=== PATIENT | male | born 1970 | race Caucasian/White ===

== ENCOUNTER → 2018-03-20 11:39 | Outpatient (CLI) | payer OTHER, SELFPAY ==
--- NOTE | 2018-03-20 11:44 | XR_ITS ---
XR shoulder LT min 2V HISTORY: ITS.REASON: Left shoulder pain ORDERING PHYSICIAN: AUDRA Rondon PATIENT AGE: 47 years Comparison: None FINDINGS: No fracture or dislocation. No lytic or blastic change. There is normal mineralization. There is minimal spurring along the inferior aspect of the glenohumeral joint. No subacromial stenosis. There is an old left ninth rib fracture IMPRESSION: Minimal osteoarthritic change of the glenohumeral joint
== END ==
PROVIDERS: PCP Physician Assistant; Visit Provider Physician Assistant
DX: M25.512 Pain in left shoulder (principal)
CPT/HCPCS: 73030

== ENCOUNTER → 2018-10-26 17:07 | Outpatient (CLI) | payer OTHER, SELFPAY ==
[2018-10-26 17:48] LABS: Basophils % 0.5 % (0.1-2.0); Eosinophils # 0.3 K/mm3 (0.0-0.4); Hematocrit 39.8 % (42.0-52.0); Hemoglobin 13.2 g/dL (14.1-18.0); Lymphocytes # 1.9 K/mm3 (0.7-4.5); Lymphocytes % 35.5 % (10-50); Mean Corpuscular HGB Conc 33.2 g/dL (31.8-35.4); Mean Corpuscular Hemoglobin 28.7 pg (27.0-31.2); Mean Corpuscular Volume 86.5 fl (80-94); Mean Platelet Volume 7.5 fl (7.4-10.4); Monocytes # 0.2 K/mm3 (0.1-1.0); Monocytes % 4.5 % (1.7-9.3); Neutrophils # 2.8 K/mm3 (1.8-7.8); Neutrophils % 53.6 % (37.0-80.0); Platelet Count 308 K/mm3 (142-424); Red Cell Distribution Width 13.2 % (11.5-17.5); White Blood Count 5.3 K/mm3 (4.8-10.8)
[2018-10-26 18:31] LABS: Alanine Aminotransferase 19 U/L (12-78); Albumin Level 3.5 gm/dL (3.4-5.0); Albumin/Globulin Ratio 1.1 (1.1-1.8); Alkaline Phosphatase 154 U/L (46-116); Aspartate Amino Transferase 10 U/L (15-37); Bilirubin,Total 0.4 mg/dL (0.2-1.0); Blood Urea Nitrogen 11 mg/dL (7-18); Calcium 8.5 mg/dL (8.5-10.1); Carbon Dioxide 27 mmol/L (21.0-32.0); Chloride 100 mmol/L (98-107); Chol/HDL Ratio 6.5 (1-3.5); Cholesterol 142 mg/dL (140-200); Creatinine,Serum 0.74 mg/dL (0.70-1.30); Estimated Glomerular Filt Rate 114 ml/min (>60); GFR (African American) 138 ML/MIN (>60); Globulin 3.3 gm/dl (1.3-3.2); Glucose 136 mg/dL (74-106); HDL Cholesterol 22 mg/dL (27-67); LDL Cholesterol 66 mg/dL (0-130); Sodium 136 mmol/L (136-145); T4 (Thyroxine) 10.3 ug/dl (4.7-13.3); Total Protein,Serum 6.8 gm/dL (6.4-8.2); Triglycerides 271 mg/dL (30-200); VLDL Cholesterol 54 mg/dL (0-40)
[2018-10-27 17:10] LABS: Hemoglobin A1C 6.1 % (0.0-7.0)
[2018-10-28 10:16] LABS: Folate 8.4 ng/mL (>3.0); Vitamin B12 502 pg/mL (232-1245); Vitamin D 25 Hydroxy 16.1 ng/mL (30.0-100.0)
== END ==
PROVIDERS: Visit Provider Physician Assistant
DX: I10 Essential (primary) hypertension (principal); R25.1 Tremor, unspecified
CPT/HCPCS: 80053; 80061; 82607; 82652; 82746; 83036; 84436; 84443; 85025

== ENCOUNTER → 2019-01-25 13:26 | Outpatient (CLI) | payer OTHER, SELFPAY ==
[2019-01-25 13:41] LABS: Basophils % 0.6 % (0.1-2.0); Eosinophils # 0.2 K/mm3 (0.0-0.4); Eosinophils % 3.9 % (0.1-12.0); Hematocrit 41.4 % (42.0-52.0); Hemoglobin 13.4 g/dL (14.1-18.0); Lymphocytes # 1.9 K/mm3 (0.7-4.5); Mean Corpuscular HGB Conc 32.4 g/dL (31.8-35.4); Mean Corpuscular Hemoglobin 27.5 pg (27.0-31.2); Mean Corpuscular Volume 84.7 fl (80-94); Monocytes # 0.3 K/mm3 (0.1-1.0); Monocytes % 5.8 % (1.7-9.3); Neutrophils # 3.4 K/mm3 (1.8-7.8); Neutrophils % 57.6 % (37.0-80.0); Platelet Count 232 K/mm3 (142-424); Red Blood Count 4.89 M/mm3 (4.60-6.20); Red Cell Distribution Width 13.6 % (11.5-17.5); White Blood Count 5.9 K/mm3 (4.8-10.8)
[2019-01-25 15:27] LABS: Alanine Aminotransferase 26 U/L (12-78); Albumin Level 3.5 gm/dL (3.4-5.0); Albumin/Globulin Ratio 1.1 (1.1-1.8); Alkaline Phosphatase 151 U/L (46-116); Anion Gap 13.9 mEq/L (5-15); Aspartate Amino Transferase 20 U/L (15-37); Bilirubin,Total 0.5 mg/dL (0.2-1.0); Blood Urea Nitrogen 12 mg/dL (7-18); Calcium 8.4 mg/dL (8.5-10.1); Carbon Dioxide 25 mmol/L (21.0-32.0); Chloride 104 mmol/L (98-107); Chol/HDL Ratio 6.5 (1-3.5); Cholesterol 209 mg/dL (140-200); Estimated Glomerular Filt Rate 104 ml/min (>60); GFR (African American) 125 ML/MIN (>60); Globulin 3.2 gm/dl (1.3-3.2); Glucose 111 mg/dL (74-106); HDL Cholesterol 32 mg/dL (27-67); LDL Cholesterol 120 mg/dL (0-130); Potassium 3.9 mmoL/L (3.5-5.1); Sodium 139 mmol/L (136-145); T4 (Thyroxine) 5.5 ug/dl (4.7-13.3); Thyroid Stimulating Hormone 2.32 uIU/ml (0.358-3.740); Total Protein,Serum 6.7 gm/dL (6.4-8.2); Triglycerides 287 mg/dL (30-200); VLDL Cholesterol 57 mg/dL (0-40)
[2019-01-27 20:46] LABS: Vitamin D 25 Hydroxy 30.7 ng/mL (30.0-100.0)
== END ==
PROVIDERS: Visit Provider Physician Assistant
DX: I10 Essential (primary) hypertension (principal); E55.9 Vitamin D deficiency, unspecified
CPT/HCPCS: 80053; 80061; 82652; 84436; 84443; 85025

== ENCOUNTER → 2019-08-07 13:59 | Outpatient (CLI) | payer OTHER, SELFPAY ==
[2019-08-07 20:58] LABS: Amphetamine/Metha Screen,Urine Negative ng/mL (<1000); Barbiturates Screen,Urine Negative ng/mL (<200); Benzodiazepines Screen,Urine Negative ng/mL (<200); Cannabinoid Screen,Urine Negative ng/mL (<50); Cocaine Screen,Urine Negative ng/mL (<300); Methadone Screen,Urine Negative ng/mL (<300); Opiate Screen,Urine Negative ng/mL (<300); Phencyclidine Screen,Urine Negative ng/mL (<25)
== END ==
PROVIDERS: Visit Provider Nurse Practitioner Family
DX: Z79.899 Other long term (current) drug therapy (principal)
CPT/HCPCS: 80305

== ENCOUNTER → 2020-03-05 18:22 | Outpatient (CLI) | payer OTHER, SELFPAY ==
[2020-03-05 19:10] LABS: Chloride 102 mmol/L (98-107); Potassium 4.4 mmoL/L (3.5-5.1); Sodium 137 mmol/L (136-145)
[2020-03-05 19:11] LABS: Basophils % 0.4 % (0.1-2.0); Eosinophils # 0.2 K/mm3 (0.0-0.4); Eosinophils % 2.4 % (0.1-12.0); Hematocrit 41.7 % (42.0-52.0); Hemoglobin 14.5 g/dL (14.1-18.0); Lymphocytes # 2.2 K/mm3 (0.7-4.5); Lymphocytes % 32.2 % (10-50); Mean Corpuscular HGB Conc 34.9 g/dL (31.8-35.4); Mean Corpuscular Hemoglobin 31.2 pg (27.0-31.2); Mean Corpuscular Volume 89.4 fl (80-94); Mean Platelet Volume 9.5 fl (7.4-10.4); Monocytes # 0.3 K/mm3 (0.1-1.0); Monocytes % 4.7 % (1.7-9.3); Neutrophils # 4.1 K/mm3 (1.8-7.8); Neutrophils % 60.2 % (37.0-80.0); Platelet Count 203 K/mm3 (142-424); Red Blood Count 4.67 M/mm3 (4.60-6.20); Red Cell Distribution Width 12.9 % (11.5-17.5); White Blood Count 6.7 K/mm3 (4.8-10.8)
[2020-03-05 19:13] LABS: Alanine Aminotransferase 21 U/L (12-78); Albumin Level 4.3 g/dl (3.5-5.0); Albumin/Globulin Ratio 1.7 (1.1-1.8); Alkaline Phosphatase 131 U/L (38-126); Anion Gap 14.4 mEq/L (5-15); Aspartate Amino Transferase 31 U/L (17-59); Bilirubin,Total 0.7 mg/dl (0.2-1.3); Blood Urea Nitrogen 18 mg/dl (9-20); Carbon Dioxide 25 mmol/L (22.0-30.0); Cholesterol 183 mg/dl (140-200); Estimated Glomerular Filt Rate 80 ml/min (>60); GFR (African American) 97 ML/MIN (>60); Globulin 2.6 g/dL (1.3-3.2); Glucose 93 mg/dl (74-100); Total Protein,Serum 6.9 g/dl (6.3-8.2); Triglycerides 316 mg/dl (30-150); VLDL Cholesterol 63 mg/dL (0-40)
[2020-03-05 19:14] LABS: Chol/HDL Ratio 5.5 (1-3.5); HDL Cholesterol 33 mg/dl (40-60)
[2020-03-05 19:26] LABS: Direct LDL Cholesterol 78.06 mg/dL (100-129)
[2020-03-05 19:31] LABS: T4 (Thyroxine) 7.9 ug/dl (5.53-11.0)
[2020-03-05 19:44] LABS: Thyroid Stimulating Hormone 1.63 uIU/mL (0.465-4.68)
[2020-03-12 13:28] LABS: 1,25 Dihydroxy Vitamin D 58 pg/mL (.); 1,25-Dihydroxy, Vitamin D-2 16 pg/mL (.); 1,25-Dihydroxy, Vitamin D-3 42 pg/mL (.)
== END ==
PROVIDERS: Visit Provider Physician Assistant
DX: I10 Essential (primary) hypertension (principal); R53.83 Other fatigue
CPT/HCPCS: 80053; 80061; 82652; 84436; 84443; 85025

== ENCOUNTER 2021-03-24 20:52 | Emergency (ER) | payer OTHER, SELFPAY ==
[2021-03-24 21:01] VITALS: BP 147/108; PULSE 99; RESP 17; TEMP 36.7; O2SAT 99; BMI 26.5
--- NOTE | 2021-03-24 21:07 | XR_ITS ---
PROCEDURE INFORMATION: Exam: XR Left Shoulder Exam date and time: 03/24/2021 9:07 PM Age: 50 years old Clinical indication: Pain; Patient HX: Patient states possible left shoulder dislocation, he refuses to attempt to move it all for positioning. ; Additional info: Possible dislocation TECHNIQUE: Imaging protocol: XR Left shoulder. Views: 2 or more views. COMPARISON: CR SHOULDCMLT XR shoulder LT min 2V 03/20/2018 11:48 AM FINDINGS: Bones/joints: Normal. Soft tissues: Normal. IMPRESSION: No acute findings.
--- NOTE | 2021-03-24 21:07 | XR_ITS ---
PROCEDURE INFORMATION: Exam: XR Chest Exam date and time: 03/24/2021 9:07 PM Age: 50 years old Clinical indication: Pain; Other: Possible left shoulder dislocation; Additional info: Possible dislocated shoulder TECHNIQUE: Imaging protocol: XR of the chest. Views: 2 views. COMPARISON: CR RIBUL3 [id number] 10/19/2016 7:38 PM FINDINGS: Lungs: Examination is limited by patient positioning. No visualized consolidation. Pleural spaces: Unremarkable. No pleural effusion. No pneumothorax. Heart/Mediastinum: Unremarkable. No cardiomegaly. Bones/joints: Unremarkable. IMPRESSION: Limited examination without visualized acute findings.
[2021-03-24 21:15] VITALS: BP 136/102; PULSE 83; O2SAT 96
[2021-03-24 21:30] VITALS: BP 134/93; PULSE 81; O2SAT 95
--- NOTE | 2021-03-24 21:59 | HMH.EDUPEXT ---
ED Disposition Clinical Impression: Shoulder disorder Disposition: Home, Self-Care Condition on Discharge: Good Instructions: DI for Shoulder Pain Additional Instructions: call ortho and pcp for follow up and monitor bp Referrals: Marvin Stafford MD [Primary Care Provider] - - Critical Care Critical Care Time: No Attestation: On 03/24/21, the high probability of a clinically significant, sudden or life threatening deterioration of the following system(s) required my full and direct attention, intervention and personal management. The time I documented below is in addition to time spent performing reported procedures but includes the following listed in this critical care notation. Medical Decision Making - Medical Records Medical records reviewed: Yes: I reviewed the patient's medical records. - [place] Inquiry Pt receiving controlled substance: No Vital Signs: 03/24/21 21:01 03/24/21 21:15 Temperature 98.1 F Temperature Source Oral Pulse Rate 83 Pulse Rate [Right Brachial] 99 H Respiratory Rate 17 Blood Pressure 136/102 H Blood Pressure [Right Arm] 147/108 H Blood Pressure Mean [Right Arm] 121 Blood Pressure Source [Right Arm] Automatic Cuff Blood Pressure Position [Right Arm] Sitting 02 Sat by Pulse Oximetry 99 96 Oxygen Delivery Method Room Air - Radiology Data #1 Image(s): Chest, Shoulder Image Reviewed: Yes I have reviewed radiologist's interpretation Preliminary Findings: No Fracture Seen Medical Decision Narrative: no clinical or xray dislocation Upper Extremity HPI - General Chief Complaint: Extremity Injury, Upper Stated Complaint: Displacement of l Shoulder Time Seen by Provider: 03/24/21 21:35 Mode of Arrival: Family Vehicle Source of Information: Patient, Medical Record Limitations: No Limitations Description of Symptoms (Recalled from ER Triage Doc. by RN): pt states he was messing around outside with my car and my shoulder made a 'shift', like a pop noise and hurt and I'm afraid its out of palce . denies any trauma, falls, or other issues. - History of Present Illness HPI narrative: acute pain lt shoulder after using upper ext - no fall complaint: injury to: left, shoulder Onset (ago): hour(s) Other Extremity Injury: Left: shoulder Other injuries: none Handedness: right Severity: moderate Exacerbating factors: movement of extremity Associated symptoms: denies other symptoms - Related Data Home Medications Medication Instructions Recorded Confirmed atorvastatin 10 mg tablet 20 mg PO QHS tab 10/23/19 03/24/21 buprenorphine 8 mg-naloxone 2 mg 2 tab SUBLINGUAL DAILY tab 03/05/20 03/24/21 sublingual tablet Gabapentin [Gabapentin 100mg Cap] 100 mg PO TID 03/24/21 03/24/21 Quetiapine Fumarate See Rx Instructions .ROUTE .COMPLEX 03/24/21 03/24/21 Venlafaxine HCl [Effexor XR 150mg] See Rx Instructions .ROUTE .COMPLEX 03/24/21 03/24/21 carvediloL [Carvedilol 25mg Tab] See Rx Instructions .ROUTE .COMPLEX 03/24/21 03/24/21 lisinopriL [Lisinopril] See Rx Instructions .ROUTE .COMPLEX 03/24/21 03/24/21 methylPREDNISolone See Rx Instructions PO PER PKG DIR 03/24/21 03/24/21 [Methylprednisolone] Allergies Allergy/AdvReac Type Severity Reaction Status Date / Time nicotine [From Nicoderm CQ] Allergy Mild Rash Verified 03/10/21 09:30 tuberculin, purified protein Allergy Unknown Verified 03/10/21 09:30 deriva [TUBERCULIN, PURIFIED PROTEIN DERIVA] [facility] History - Hepatitis A Screen Drug use history?: No High risk sexual behaviors?: No History of sexually transmitted infection?: No Currently employed?: No Childcare worker?: No Do you have indoor plumbing?: Yes Do you have electricity?: Yes Attestation statement:: This patient has been screened for Hepatitis A risk factors. I have reviewed the patient's past medical history: Yes 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: Reports:: Anxiety, Hyperlipidemia, Hypertension Denies:: Diabetes Alison
[2021-03-24 22:03] VITALS: BP 140/101; PULSE 87; RESP 17; TEMP 36.7; O2SAT 98
== END 2021-03-24 22:41 | disposition home or self-care (01) ==
PROVIDERS: Emergency Provider Emergency Medicine; PCP Emergency Medicine
DX: M25.512 Pain in left shoulder (principal); M25.9 Joint disorder, unspecified; X50.9XXA Other and unspecified overexertion or strenuous movements or postures, initial encounter; Y92.89 Other specified places as the place of occurrence of the external cause
CPT/HCPCS: 71046; 73030; 99283

== ENCOUNTER 2021-03-31 17:00 | Outpatient (RCR) | payer OTHER, SELFPAY ==
--- NOTE | 2021-03-23 17:39 | HMH.PTOPEV ---
PT Outpatient Evaluation Rehab PT Outpatient Evaluation Start: 03/23/21 17:26 Freq: Status: Active Protocol: Document 03/23/21 17:26 NESSASRAVANTHI (Rec: 03/23/21 17:38 NESSASRAVANTHI [id number]) Electronically Signed By Bubba Martin, PT 03/23/21 17:26 Outpatient Therapy Subjective History Subjective History This is the initial Physical Therapy evaluation for Darnell Montgomery. Pt is a 50 y/o male referred to PT for c/o LBP and LLE paresthesia. Pt rpeorts he was moving stuff around the house and he felt a pop in his low back. Pt rpeorts he did not think too much about it, but states the next day when he woke up his LLE was numb on the lateral thigh area. Pt reports this numbness has been unrelenting. Chief Complaint Pain,Paresthesia Symptom Type Ache,Burning,Numbness,Tingling Symptoms Relieved By Nothing Symptoms Aggravated By Bending/Stooping,Physical Activity Prior Functional Limitations None Current Functional Limitations Sitting,Recreation Activity, Walking,Bending/Stooping Symptom Description Constant but Variable, Intermittent Level of pain today (0-10) 0 Pain scale - at its best (0-10) 0 Pain scale - at its worst (0-10) 5 Lumbopelvic Eval Posture Thoracic Spine Posture Standing Position Neutral Lumbar Spine Posture Standing Position Neutral Assistive device Assistive Devices None / NA Accessory Movement L3 left L4 left L5 left Range of Motion Lumbar Spine ROM Reason Not Measured Within Functional Limits Altered Sensation Left LE Dermatome Level L3,L4 Comment abnormal - paresthesia Special Tests Lumbar Spine Screen Positive Hip Piriformis Test Positive Left Sciatic Nerve Tension Test Positive Left Unilateral Straight Leg Raise (Lasegue) Positive Left Test Lumbar Long [place] Distraction Test/Manual Positive Traction Outpatient Therapy Assessment Impairments Problems/Impairmments Palpation Tenderness,Impaired Range of Motion,Impaired Standing,Impaired Sitting, Impaired Lifting,Impaired Bending,Impaired Recreational
== END 2021-03-31 17:54 | disposition home or self-care (01) ==
LOC: PT 17:00
PROVIDERS: PCP Physician Assistant; Visit Provider Emergency Medicine
DX: M51.16 Intervertebral disc disorders with radiculopathy, lumbar region (principal)
CPT/HCPCS: 97163

== ENCOUNTER → 2021-07-14 09:47 | Outpatient (CLI) | payer OTHER, SELFPAY ==
[2021-07-14 10:29] LABS: Basophils % 0.4 % (0.1-2.0); Eosinophils # 0.1 K/mm3 (0.0-0.4); Eosinophils % 1.4 % (0.1-12.0); Hematocrit 42.3 % (42.0-52.0); Hemoglobin 14.5 g/dL (14.1-18.0); Lymphocytes # 1.7 K/mm3 (0.7-4.5); Lymphocytes % 21.4 % (10-50); Mean Corpuscular HGB Conc 34.4 g/dL (31.8-35.4); Mean Corpuscular Hemoglobin 31.1 pg (27.0-31.2); Mean Corpuscular Volume 90.3 fl (80-94); Mean Platelet Volume 8.3 fl (7.4-10.4); Monocytes # 0.2 K/mm3 (0.1-1.0); Monocytes % 3.1 % (1.7-9.3); Neutrophils # 5.8 K/mm3 (1.8-7.8); Neutrophils % 73.6 % (37.0-80.0); Platelet Count 256 K/mm3 (142-424); Red Blood Count 4.68 M/mm3 (4.60-6.20); Red Cell Distribution Width 12.7 % (11.5-17.5); White Blood Count 7.8 K/mm3 (4.8-10.8)
[2021-07-14 10:49] LABS: Chloride 105 mmol/L (98-107); Potassium 4.2 mmoL/L (3.5-5.1); Sodium 140 mmol/L (136-145)
[2021-07-14 10:52] LABS: Alanine Aminotransferase 11 U/L (12-78); Albumin Level 4.3 g/dl (3.5-5.0); Alkaline Phosphatase 112 U/L (38-126); Anion Gap 8.2 mEq/L (5-15); Aspartate Amino Transferase 27 U/L (17-59); Bilirubin,Indirect 0.6 mg/dL (0.0-0.9); Bilirubin,Total 0.6 mg/dl (0.2-1.3); Bilirubin,Unconjugated 0.7 mg/dL (0.0-1.1); Blood Urea Nitrogen 15 mg/dl (9-20); Calcium 8.9 mg/dl (8.4-10.2); Carbon Dioxide 31 mmol/L (22.0-30.0); Chol/HDL Ratio 5.4 (1-3.5); Cholesterol 205 mg/dl (140-200); Estimated Glomerular Filt Rate 120 ml/min (>60); GFR (African American) 145 ML/MIN (>60); Glucose 124 mg/dl (74-100); HDL Cholesterol 38 mg/dl (40-60); Total Protein,Serum 6.7 g/dl (6.3-8.2); Triglycerides 90 mg/dl (30-150); VLDL Cholesterol 18 mg/dL (0-40)
[2021-07-14 11:03] LABS: Direct LDL Cholesterol 135.86 mg/dL (100-129)
[2021-07-14 11:09] LABS: Free T4 (Free Thyroxine) 1.02 ng/dl (0.78-2.19)
[2021-07-14 11:24] LABS: Thyroid Stimulating Hormone 1.18 uIU/mL (0.465-4.68)
== END ==
PROVIDERS: Visit Provider Urology
DX: R07.9 Chest pain, unspecified (principal); I10 Essential (primary) hypertension; E78.49 Other hyperlipidemia; Z72.0 Tobacco use
CPT/HCPCS: 36415; 80048; 80061; 80076; 84439; 84443; 85025

== ENCOUNTER → 2021-07-21 07:51 | Outpatient (CLI) | payer OTHER, SELFPAY ==
--- NOTE | 2021-07-21 | CA_ITS ---
APPROVED REPORT Exam: Exercise Treadmill Technologist: Alma Andrade, Ht: 5 ft 10 in Wt: 179 lbs BSA: 1.99 m2 HR: 61 bpm BP: 127/88 mmHg Rhythm: SINUS BRIAN, SLOW R WAVE PROGRESSION 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: HTN Medications: Carvedilol,,,,, Venlafaxine,,,,, Lisinopri/HCTZ,,,,, Allergies: NICOTINE, TUBERCULIN Cardiac Risk Factors: HTN, FHX of CAD, Smoking Stress Test Details Test: Forest, Exercise stress testing was performed using a modified Forest protocol. HR Resting HR: 64 bpm Max Heart Rate (APMHR): 171 bpm Max HR Achieved: 109 bpm Target HR (85% APMHR): 145 bpm % of APMHR: 63 Recovery HR: 69 bpm BP Resting BP: 134/95 mmHg Max BP: 172/97 mmHg Recovery BP: 144.0/92.0 mmHg ECG Resting ECG: SINUS BRIAN, SLOW R WAVE PROGRESSION Clinical Exercise duration: 09:41 min Highest Stage Achieved: Exercise capacity: 10.1 METs Stress ECG Conclusion MAX HR= 109. % OF PM=64%. MAX B/P=172/97. METS 10.1. TEST STOPPED DUE TO=SOA, FATIGUE. PT EXERCISED 9:41 ON FOREST PROTOCOL. NO CHANGE IN PRETEST CHEST PRESSURE WITH EXERCISE. NORMAL ST RESPONSE TO EXERCISE. NORMAL GXT TO HR ACHIEVED (64% OF PM) BLUNTED HR RESPONSE ON BETA-RAFFY. GXT ONLY (NO IMAGING) Test Summary REST . . . . . . . Standing REST . . . . . . . Sitting REST 03:27 0.0 0.0 64 . 134/ 95 . . Stage 1 01:00 10.0 1.7 78 . . . . Stage 1 02:00 10.0 1.7 85 . . . . Stage 1 03:00 10.0 1.7 83 . 140/ 82 . . Stage 2 01:00 12.0 2.5 87 . . . . Stage 2 02:00 12.0 2.5 89 . . . . Stage 2 03:00 12.0 2.5 90 . 146/ 82 . . Stage 3 01:00 14.0 3.4 97 . . . . Stage 3 02:00 14.0 3.4 101 . . . . Stage 3 03:00 14.0 3.4 102 . 156/ 88 . . Stage 4 00:41 16.0 4.2 108 . . . Stop exercise at 09:41 RECOVERY 01:00 0.0 0.0 84 . 162/ 90 . . RECOVERY 02:00 0.0 0.0 64 . 162/ 90 . . RECOVERY 03:00 0.0 0.0 65 . 172/ 97 . . RECOVERY 04:00 0.0 0.0 68 . 172/ 97 . . RECOVERY 05:00 0.0 0.0 69 . 172/ 97 . . RECOVERY 05:37 0.0 0.0 65 . 144/ 92 . . Electronically signed by : Chalino Salmon MD 07/21/2021 19:39:56
--- NOTE | 2021-07-21 07:52 | CA_ITS ---
APPROVED REPORT EXAM: Comprehensive 2D, Doppler, and color-flow Echocardiogram Bus Girl: Katie Meneses RT(R) Ht: 5 ft 10 in Wt: 179lbs BSA: 1.99 BP: 137/90 mmHg Indications: CP, Smoker, HTN, SOB, hyperlipidemia 2D Dimensions LVOT 2.04 cm (M/F) 1.5-2.5 LVEF ([facility]) 54.00 % LV Volume 123.20 mL LA Volume 38.50 mL LA Volume Index 19.30 mL/m2 (M/F) 16-34 M-Mode Dimensions RVDd 3.31 cm (0.9-2.6) LA Diam 3.09 cm (1.9-4.0) LVDd 5.30 cm (3.5-5.7) Ao Diam 3.52 cm (2.0-3.7) LVDs 4.17 cm (3.5-5.7) IVSd 1.00 cm (0.6-1.1) PWd 0.82 cm (0.6-1.1) EF (Teich) 42.90% FS 21.30% EDV (Teich) 135.30 mL ESV (Teich) 77.30 mL LV Diastology E Decel Time 190.00 (160-240 msec) E/A Ratio 0.91 MED E' 6.60 (< 7 cm/sec) E'/MED E' Ratio 11.58 (>14) LAT E' 11.60 (<10 cm/sec) E/LAT E' Ratio 6.59 (>14) Mitral Valve MV E Max [place]. 76.00 (40-130 cm/s) MV A Velocity 84.00 (40-130 cm/s) E/A Ratio 0.91 MV Decel. Time 190.00 (160-240 ms) MV PHT 56.00 ms Left Ventricle Left atrium is mildly enlarged, left ventricle is normal size, mild concentric left ventricular hypertrophy, visually estimated ejection fraction 55% with no regional wall motion abnormality, grade 1 diastolic dysfunction seen without tissue Doppler evidence of raise left atrial pressure. Right Ventricle Right atrium and right ventricle mildly enlarged with normal contractility. Aortic Valve Aortic valve is minimally thickened and fibrosed, there is no aortic stenosis or aortic insufficiency. Mitral Valve Mitral valve grossly normal, there is trace mitral regurgitation. Tricuspid Valve Tricuspid grossly normal, there is trace tricuspid regurgitation, tricuspid regurgitation jet velocity is inadequate for calculation of the right ventricular systolic pressure. Pulmonic Valve Pulmonic valve is poorly visualized. Great Vessels Aortic root is normal size. Inferior vena cava is normal size with normal inspiratory collapse. Pericardium No significant pericardial effusion noted. Conclusion 1. Mild biatrial enlargement, normal left ventricular size, mild concentric left ventricular hypertrophy, visually estimated ejection fraction 55% with no regional wall motion abnormality, grade 1 diastolic dysfunction seen without tissue Doppler evidence of raise left atrial pressure. 2. Mildly enlarged right ventricle with normal contractility. 3. Trace mitral and tricuspid regurgitation. 4. No significant pericardial effusion noted. 5. Inferior vena cava normal size with normal inspiratory collapse. Electronically signed by : Chalino Salmon MD 07/21/2021 20:08:54
== END ==
PROVIDERS: PCP Emergency Medicine; Visit Provider Urology
DX: R07.9 Chest pain, unspecified (principal); I10 Essential (primary) hypertension; E78.5 Hyperlipidemia, unspecified; Z72.0 Tobacco use
CPT/HCPCS: 93017; 93306

== ENCOUNTER 2022-07-10 01:37 | Emergency (ER) | payer OTHER, SELFPAY ==
[2022-07-10] VITALS (9 sets, daily range): BP systolic 113–160; BP diastolic 64–100; PULSE 70–86; RESP 18–23; TEMP 36.8–37.2; O2SAT 94–100; BMI 20.3
--- NOTE | 2022-07-10 01:36 | ECG_ITS ---
APPROVED REPORT Exam: Resting ECG HR:87 bpm ECG Measurements Heart Rate 87 AXES WV 181 P 78 QRSd 113 QRS 78 QT 411 T 79 QTc 456 Conclusion SINUS RHYTHM INCOMPLETE RIGHT BUNDLE BRANCH BLOCK [90+ ms QRS DURATION, TERMINAL R IN V1/V2, 40+ ms S IN I/aVL/V4/V5/V6] BORDERLINE ECG UNCONFIRMED REPORT Electronically signed by : Bryan Haque MD 07/10/2022 21:12:23
--- NOTE | 2022-07-10 02:09 | CT_ITS ---
PROCEDURE INFORMATION: Exam: CT Head Without Contrast Exam date and time: 07/10/2022 2:34 AM Age: 51 years old Clinical indication: Other: Seizure like activity TECHNIQUE: Imaging protocol: Computed tomography of the head without contrast. Radiation optimization: All CT scans at this facility use at least one of these dose optimization techniques: automated exposure control; mA and/or kV adjustment per patient size (includes targeted exams where dose is matched to clinical indication); or iterative reconstruction. COMPARISON: No relevant prior studies available. FINDINGS: Brain: No evidence of acute intracranial hemorrhage. No acute parenchymal edema. No mass or shift. Cerebral ventricles: No ventriculomegaly. Paranasal sinuses: Visualized sinuses are unremarkable. No fluid levels. Mastoid air cells: Unremarkable as visualized. No mastoid effusion. Bones/joints: No acute fracture. Soft tissues: Unremarkable. IMPRESSION: No acute intracranial process.
[2022-07-10 02:17] LABS: Basophils % 0.3 % (0.1-2.0); Eosinophils # 0.1 K/mm3 (0.0-0.4); Eosinophils % 0.4 % (0.1-12.0); Hematocrit 45.4 % (42.0-52.0); Hemoglobin 14.9 g/dL (14.1-18.0); Lymphocytes # 1.4 K/mm3 (0.7-4.5); Lymphocytes % 9.3 % (10-50); Mean Corpuscular HGB Conc 32.9 g/dL (31.8-35.4); Mean Corpuscular Hemoglobin 29.8 pg (27.0-31.2); Mean Corpuscular Volume 90.7 fl (80-94); Mean Platelet Volume 8.5 fl (7.4-10.4); Monocytes # 0.3 K/mm3 (0.1-1.0); Monocytes % 1.8 % (1.7-9.3); Neutrophils # 13.1 K/mm3 (1.8-7.8); Neutrophils % 88.2 % (37.0-80.0); Platelet Count 240 K/mm3 (142-424); Red Blood Count 5.01 M/mm3 (4.60-6.20); White Blood Count 14.8 K/mm3 (4.8-10.8)
[2022-07-10 02:19] LABS: Chloride 102 mmol/L (98-107); Potassium 3.6 mmoL/L (3.5-5.1); Sodium 141 mmol/L (136-145)
[2022-07-10 02:21] LABS: Alanine Aminotransferase 32 U/L (12-78); Aspartate Amino Transferase 39 U/L (17-59); Blood Urea Nitrogen 9 mg/dl (9-20); Creatinine Clearance Estimated 121 mL/min (50-200); Estimated Glomerular Filt Rate 119 ml/min (>60); GFR (African American) 144 ML/MIN (>60); MANUAL DIFFERENTIAL MANUAL DIFFERENTIAL (MANUAL DIFF)
[2022-07-10 02:22] LABS: Albumin Level 4.5 g/dl (3.5-5.0); Albumin/Globulin Ratio 1.6 (1.1-1.8); Alkaline Phosphatase 177 U/L (38-126); Anion Gap 14.6 mEq/L (5-15); Bilirubin,Total 0.5 mg/dl (0.2-1.3); Calcium 9.4 mg/dl (8.4-10.2); Carbon Dioxide 28 mmol/L (22.0-30.0); Globulin 2.8 g/dL (1.3-3.2); Glucose 185 mg/dl (74-100); Total Protein,Serum 7.3 g/dl (6.3-8.2)
[2022-07-10 02:29] LABS: Coronavirus 19, PCR Not Detected (NotDetected); Influenza A, PCR Not Detected (NotDetected); Influenza B, PCR Not Detected (NotDetected)
[2022-07-10 02:29] LABS: Microscopic, Urine URINE MICROSCOPIC (MICROSCOPIC)
[2022-07-10 02:33] LABS: Appearance,Urine CLEAR (Clear); Bilirubin,Urine Negative (Negative); Blood, Urine TRACE-I (Negative); Color,Urine YELLOW (Yellow); Glucose,Urine (UA) Negative (Negative); Ketones,Urine Negative (Negative); Leukocyte Esterase,Urine Negative (Negative); Nitrate,Urine Negative (Negative); Protein,Urine TRACE (Negative); Specific Gravity, Urine 1.025 (1.005-1.030); Urobilinogen,Urine 0.2 EU/dl (0.2)
[2022-07-10 02:34] LABS: Lymphocytes % 11 % (10-50); Neutrophils % 77 % (42-76); Platelet Estimate Normal; RBC Morphology Normal; Total Cells Counted 100
--- NOTE | 2022-07-10 02:38 | HMH.EDAMS ---
Discharge Plan Disposition Patient Disposition: Home, Self-Care Chief Complaint: Altered Mental Status Prescriptions Prescriptions: No Action atorvastatin 20 mg tablet 20 mg PO DAILY Qty: 90 3RF Rx Instructions: One daily for cholesterol lisinopril 10 mg tablet See Rx Instructions .ROUTE .COMPLEX Qty: 90 5RF Dose Instruction: TAKE ONE TABLET BY MOUTH EVERY DAY Rx Instructions: TAKE ONE TABLET BY MOUTH EVERY DAY carvedilol 25 mg tablet See Rx Instructions .ROUTE .COMPLEX Qty: 60 5RF Dose Instruction: TAKE ONE TABLET BY MOUTH TWICE DAILY Rx Instructions: TAKE ONE TABLET BY MOUTH TWICE DAILY venlafaxine 150 mg capsule,extended release 24hr See Rx Instructions .ROUTE .COMPLEX Qty: 90 5RF Dose Instruction: TAKE ONE CAPSULE BY MOUTH EVERY DAY Rx Instructions: TAKE ONE CAPSULE BY MOUTH EVERY DAY Referrals Follow up/Referrals: Marvin Stafford MD [Primary Care Provider] - See instructions Clinical Impressions Clinical Impression: Acute alteration in mental status Instructions Patient Instructions: DI for Altered Mental Status Discharge ED Provider: Marvin Stafford Altered Mental Status HPI General Chief Complaint: Altered Mental Status Stated Complaint: seizures Time Seen by Provider: 07/10/22 02:38 Mode of Arrival: EMS Source of Information: Patient and EMS Limitations: No Limitations Description of Symptoms (Recalled from ER Triage Doc. by RN): Pt c/o nausea and vomiting since last night. Per EMS, reported that at 10pm tonight the patient woke up clutching his chest and vomitted and fell back into the bed and was twitching with seizure like activity followed by unresponsiveness. states that the patient had one more episode similar to this when she decided to call EMS and patient had another episode while ems was en route to patients house. EMS states that patient was very lethargic with vomiting while en route to [facility] but no seizures while en route. History of Present Illness HPI narrative: pt with nausea and vomiting with 2 episodes of sitting up and jerking and was lethargic - no fever/rash or trauma - no known sz disorder complaint: altered mental status Onset (ago): hour(s) Timing confirmed by: spouse Severity: moderate Consistency of symptoms: waxing and waning Associated symptoms: denies other symptoms Related Data Home Medications Medication Instructions Recorded Confirmed atorvastatin 20 mg tablet 20 mg PO DAILY hld 07/10/22 07/10/22 carvedilol 25 mg tablet 25 mg PO DAILY htn 07/10/22 07/10/22 lisinopril 10 mg tablet 10 mg PO DAILY htn 07/10/22 07/10/22 venlafaxine 150 mg 150 mg PO DAILY Depression 07/10/22 07/10/22 capsule,extended release 24 hr Allergies Allergy/AdvReac Type Severity Reaction Status Date / Time nicotine [From Nicoderm CQ] Allergy Mild Rash Verified 08/20/21 14:34 tuberculin, purified protein Allergy Unknown Verified 08/20/21 14:34 deriva [TUBERCULIN, PURIFIED PROTEIN DERIVA] [facility] 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 (Updated 07/10/22 @ 06:24 by Marvin Stafford MD) Anxiety RLS (restless legs syndrome) Shoulder injury Tobacco abuse Vitamin D deficiency Social History Smoking Status: Current every day smoker tobacco type: cigarettes packs per day: 1 alcohol intake: never counseling provided: none substance use type: former substance user current occupational status: employed Travel in the last 8 weeks: None household members: family housing: house ROS Obtained: Yes All systems reviewed & no additional complaints except as documented Physical Exam General General appearance: alert Head Head exam: normocephalic Eye Eye exam: Present PERRL, EOMI and other (lt sided tommy cyst ) ENT ENT exam: Present mucous membranes moist and other (no evid of tongue biting ) Neck Neck exam: Present trachea midline; Absent meningismus or lymphadenopathy Respiratory Resp
[2022-07-10 02:42] LABS: RBC,Urine Occasional #/hpf (0-3); Sperm,Urine 2+ /lpf
[2022-07-10 02:43] LABS: Benzodiazepines Screen,Urine Negative ng/ml (<200)
[2022-07-10 02:44] LABS: Amphetamine/Metha Screen,Urine Negative ng/ml (<1000)
[2022-07-10 02:45] LABS: Barbiturates Screen,Urine Negative ng/ml (<200); Cannabinoid Screen,Urine Positive ng/ml (<50)
[2022-07-10 02:46] LABS: Cocaine Screen,Urine Negative ng/ml (<300)
[2022-07-10 02:47] LABS: Methadone Screen,Urine Negative ng/ml (<300); Opiate Screen,Urine Negative ng/ml (<300)
[2022-07-10 02:48] LABS: Phencyclidine Screen,Urine Negative ng/ml (<25)
[2022-07-10 02:51] LABS: Troponin I < 0.01 ng/ml (0.00-0.034)
[2022-07-10 02:59] LABS: Amylase 108 U/L (30-110); Lipase 28 U/L (23-300)
--- NOTE | 2022-07-10 05:23 | XR_ITS ---
PROCEDURE INFORMATION: Exam: XR Chest Exam date and time: 07/10/2022 5:44 AM Age: 51 years old Clinical indication: Sternal or substernal pain; Additional info: Chest pain TECHNIQUE: Imaging protocol: Radiologic exam of the chest. Views: 2 views. COMPARISON: CR XR CHEST 2V 03/24/2021 9:27 PM FINDINGS: Lungs: No consolidation. Pleural spaces: No significant pleural effusion. No pneumothorax. Heart/Mediastinum: No cardiomegaly. Bones/joints: No displaced fracture. Soft tissues: Unremarkable. IMPRESSION: No definite acute cardiopulmonary disease.
[2022-07-10 05:32] LABS: C-Reactive Protein 6.8 mg/L (0-4)
[2022-07-10 05:40] LABS: Erythrocyte Sedimentation Rate 13 mm/hr (0-15)
== END 2022-07-10 06:27 | disposition home or self-care (01) ==
PROVIDERS: Emergency Provider Emergency Medicine; PCP Emergency Medicine
DX: R41.82 Altered mental status, unspecified (principal); R56.9 Unspecified convulsions; R11.2 Nausea with vomiting, unspecified; Z79.899 Other long term (current) drug therapy; E78.5 Hyperlipidemia, unspecified; I10 Essential (primary) hypertension; F32.A Depression, unspecified; F41.9 Anxiety disorder, unspecified; G25.81 Restless legs syndrome
CPT/HCPCS: 70450; 71046; 80053; 80305; 81001; 82150; 83690; 84484; 85007; 85025; 85651; 86140; 93005; 96374; 96375; 99285; C9803; J2405; U0003; U0005

== ENCOUNTER → 2022-09-17 15:00 | Outpatient (CLI) | payer OTHER, SELFPAY ==
[2022-09-17 18:20] LABS: Alanine Aminotransferase 20 U/L (12-78); Albumin Level 4.2 g/dl (3.5-5.0); Albumin/Globulin Ratio 1.8 (1.1-1.8); Alkaline Phosphatase 103 U/L (38-126); Anion Gap 9.8 mEq/L (5-15); Aspartate Amino Transferase 32 U/L (17-59); Bilirubin,Total 0.5 mg/dl (0.2-1.3); Blood Urea Nitrogen 14 mg/dl (9-20); Calcium 8.3 mg/dl (8.4-10.2); Carbon Dioxide 28 mmol/L (22.0-30.0); Chloride 107 mmol/L (98-107); Chol/HDL Ratio 4.5 (1-3.5); Cholesterol 167 mg/dl (140-200); Estimated Glomerular Filt Rate 119 ml/min (>60); GFR (African American) 144 ML/MIN (>60); Globulin 2.3 g/dL (1.3-3.2); Glucose 115 mg/dl (74-100); HDL Cholesterol 37 mg/dl (40-60); Potassium 3.8 mmoL/L (3.5-5.1); Sodium 141 mmol/L (136-145); Total Protein,Serum 6.5 g/dl (6.3-8.2); Triglycerides 267 mg/dl (30-150); VLDL Cholesterol 53 mg/dL (0-40)
[2022-09-17 18:22] LABS: Basophils # 0.1 K/mm3 (0-0.2); Basophils % 0.9 % (0.1-2.0); Eosinophils # 0.5 K/mm3 (0.0-0.4); Eosinophils % 6.4 % (0.1-12.0); Hematocrit 40.9 % (42.0-52.0); Hemoglobin 13.5 g/dL (14.1-18.0); Lymphocytes # 2.1 K/mm3 (0.7-4.5); Lymphocytes % 30.2 % (10-50); Mean Corpuscular HGB Conc 33.1 g/dL (31.8-35.4); Mean Corpuscular Hemoglobin 29.8 pg (27.0-31.2); Mean Corpuscular Volume 90.2 fl (80-94); Mean Platelet Volume 9.1 fl (7.4-10.4); Monocytes # 0.3 K/mm3 (0.1-1.0); Monocytes % 3.5 % (1.7-9.3); Neutrophils # 4.2 K/mm3 (1.8-7.8); Platelet Count 215 K/mm3 (142-424); Red Blood Count 4.54 M/mm3 (4.60-6.20); Red Cell Distribution Width 13.3 % (11.5-17.5); White Blood Count 7.1 K/mm3 (4.8-10.8)
[2022-09-17 18:39] LABS: 25-OH Vitamin D, Total 29.4 ng/mL (30-100)
[2022-09-17 18:51] LABS: Prostate Specific Ag Screen 0.9 ng/ml (0.0-4.0); Thyroid Stimulating Hormone 1.35 uIU/mL (0.465-4.68)
== END ==
PROVIDERS: PCP Emergency Medicine; Visit Provider Emergency Medicine
DX: Z00.00 Encounter for general adult medical examination without abnormal findings (principal); E55.9 Vitamin D deficiency, unspecified; Z79.899 Other long term (current) drug therapy
CPT/HCPCS: 80053; 80061; 82306; 84443; 85025; G0103

== ENCOUNTER 2023-01-05 19:13 | Emergency (ER) | payer OTHER, SELFPAY ==
--- NOTE | 2023-01-05 19:19 | XR_ITS ---
PROCEDURE INFORMATION: Exam: XR Right Knee Exam date and time: 01/05/2023 7:20 PM Age: 52 years old Clinical indication: Injury or trauma; Fall; Work related; Blunt trauma; Patient HX: Patient fell yesterday injuring right knee. TECHNIQUE: Imaging protocol: Radiologic exam of the right knee. Views: 3 views. COMPARISON: No relevant prior studies available. FINDINGS: Bones/joints: Normal. No fracture evident Soft tissues: Normal. IMPRESSION: No acute findings.
[2023-01-05 19:42] VITALS: BP 141/91; PULSE 86; RESP 18; TEMP 37; O2SAT 98; BMI 26.5
--- NOTE | 2023-01-05 20:05 | EXP.UTC ---
Discharge Plan Disposition Patient Disposition: Home, Self-Care Condition: Good Prescriptions Prescriptions: No Action clonazepam [Klonopin] 0.5 mg tablet 0.5 mg PO BID Qty: 60 2RF gabapentin 300 mg capsule 300 mg PO HS Qty: 30 2RF atorvastatin 20 mg tablet 20 mg PO DAILY Qty: 30 5RF Rx Instructions: One daily for cholesterol carvedilol 25 mg tablet 25 mg PO DAILY Qty: 180 3RF Rx Instructions: TAKE ONE TABLET BY MOUTH TWICE DAILY lisinopril 10 mg tablet See Rx Instructions .ROUTE .COMPLEX Qty: 90 5RF Dose Instruction: TAKE ONE TABLET BY MOUTH EVERY DAY Rx Instructions: TAKE ONE TABLET BY MOUTH EVERY DAY venlafaxine 150 mg capsule,extended release 24hr 150 mg PO DAILY Rx Instructions: TAKE ONE CAPSULE BY MOUTH EVERY DAY Referrals Follow up/Referrals: Marvin Stafford MD [Primary Care Provider] - See instructions Devon Wahl DO [Staff Physician] - See instructions Activity Restrictions/Add. Instructions Additional Instructions/Restrictions: *weight bearing as tolerated *RICE, Rest the extremity, Ice 15-20 minutes 3-4 times daily, Compress- wear the anton wrap as discussed as much as possible to help reduce swelling and pain, Elevate the extremity when at rest *Knee immobilzier is for support and help control swelling, use it except in the shower. Be sure that is not to tight but not to loose either *Elevate when resting? *Ibuprofen 600 every 6-8 hours as needed for pain an inflammation. If need something more can take Tylenol in between doses of Ibuprofen to help Immediately follow up with your family doctor for new or worsening of symptoms, or no noticeable improvement over the next 3-5 days Clinical Impressions Clinical Impression: Knee sprain Stand Alone Forms Stand Alone Forms: Work/School Release Instructions Patient Instructions: DI for Knee Sprain, How to Use Crutches, How to Use a Knee Immobilizer, Knee Sprain Discharge ED Provider: Hayde Arita [facility] General Stated complaint: AO05 RT knee inj Mode of Arrival: Wheelchair Source of Information: Patient and Spouse Limitations: No Limitations Time Seen by Provider: 01/05/23 20:05 Description of Symptoms (Recalled from Triage Doc. by RN): pt is c/o R knee pain. pt states he twisted it yesterday afternooon. HEENT Symptoms (Recalled from RN notes): No Resp Symptoms (Recalled from RN notes): No Skin Symptoms (Recalled from RN notes): No MS Symptoms (Recalled from RN notes): Yes Functional Status (Recalled from RN notes): wnl History of Present Illness Provider Complaint: Patient states that he was laying [place] yesterday and it was raining and he went to step out window and he twisted his right knee and felt a pop States that now has pain on the sides of his knee and feels like it is unsteady Related Data Home Medications Medication Instructions Recorded Confirmed venlafaxine 150 mg 150 mg PO DAILY Depression 07/10/22 12/13/22 capsule,extended release 24 hr Previous Rx's Medication Instructions Recorded atorvastatin 20 mg tablet 20 mg PO DAILY hld #30 tabs 08/26/22 carvedilol 25 mg tablet 25 mg PO DAILY htn #180 tabs 09/21/22 clonazepam 0.5 mg tablet (Klonopin) 0.5 mg PO BID #60 tabs 12/13/22 gabapentin 300 mg capsule 300 mg PO HS #30 caps 12/13/22 lisinopril 10 mg tablet See Rx Instructions .Route 12/14/22 .COMPLEX #90 tabs Allergies Allergy/AdvReac Type Severity Reaction Status Date / Time nicotine [From Nicoderm CQ] Allergy Mild Rash Verified 01/05/23 19:44 tuberculin, purified protein Allergy Unknown Verified 01/05/23 19:44 deriva [TUBERCULIN, PURIFIED PROTEIN DERIVA] Worker's Comp Is this a Worker's Comp case?: No [facility] Disclaimer: The information contained in this section may have been updated after the patient was seen, as this information can be updated by other users. 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 (Updated 01/05/23 @ 20:2
[2023-01-05 20:34] VITALS: BP 141/91; PULSE 86; RESP 18; TEMP 37
== END 2023-01-05 20:35 | disposition home or self-care (01) ==
PROVIDERS: Emergency Provider Nurse Practitioner; PCP Emergency Medicine
DX: S83.91XA Sprain of unspecified site of right knee, initial encounter (principal); F17.210 Nicotine dependence, cigarettes, uncomplicated; F41.9 Anxiety disorder, unspecified; X50.1XXA Overexertion from prolonged static or awkward postures, initial encounter
CPT/HCPCS: 73562; 99204; 99212; G0463

== ENCOUNTER → 2023-01-27 15:50 | Outpatient (CLI) | payer OTHER, SELFPAY ==
--- NOTE | 2023-01-27 16:07 | MR_ITS ---
PROCEDURE INFORMATION: Exam: MR Right Lower Extremity Joint Without Contrast, Knee Exam date and time: 01/27/2023 4:02 PM Age: 52 years old Clinical indication: Pain; Knee; Right; Additional info: Pain of right knee TECHNIQUE: Imaging protocol: Magnetic resonance imaging of the right lower extremity joint without contrast. Exam focused on the knee. COMPARISON: CR XR KNEE RT 3V 01/05/2023 7:20 PM FINDINGS: Bones/joints: Marrow edema/contusion is identified involving the medial tibial plateau. A linear focus of STIR hyperintensity is seen within the medial tibial plateau extending to the cortex, suggestive of a nondisplaced or trabecular type fracture. Cartilage loss at the medial facet of the patella with mild subchondral cystic/edematous change. A few small osseous cysts are noted within the tibial plateau posteriorly. Small patellofemoral joint effusion. Mild degenerative spurring is seen of the patella. Minimal irregularity of the cartilage in the lateral compartment the knee. Cartilage thinning/loss is seen within the medial compartment the knee. Bursae: A neck of a Booker cyst is identified. Medial meniscus: Tear of the body of the medial meniscus extending to the inferior articulating surface. Horizontal tear of the posterior horn of the medial meniscus. Lateral meniscus: A tear is visualized of the posterior root of the lateral meniscus. A small tear is identified involving the body of the lateral meniscus. Anterior cruciate ligament: No visualized tear. Posterior cruciate ligament: Mild heterogeneous signal intensity of the PCL, without definitive tear. Mild edema and small cystic collections of fluid are seen posterior to the PCL. Medial capsule and supporting structures: Edema overlies the medial collateral ligament. There is heterogeneous signal intensity of this ligament, with grade 2 injury/partial tear. Lateral capsule and supporting structures: A small amount of fluid surrounds the popliteus tendon, without visualized tear. No visualized tear of the lateral collateral ligament. Extensor mechanism of knee: Mild tendinosis of the patellar tendon and distal quadriceps tendon. Soft tissues: Soft tissue swelling is identified anteriorly and medially. Minimal edema in fluid within Hoffa's fat. Mild edema within the popliteus muscle. Muscle strain and myositis are within the differential. IMPRESSION: 1. Marrow edema/contusion is identified involving the medial tibial plateau, with a suggested nondisplaced or trabecular type fracture. 2. MCL grade 2 injury/partial tear. 3. Medial and lateral meniscal tears. 4. Soft tissue swelling is identified anteriorly and medially. 5. Mild edema within the popliteus muscle. Muscle strain and myositis are within the differential. Clinical correlation is recommended. 6. Cartilage loss at the medial facet of the patella with mild subchondral cystic/edematous change. Cartilage thinning/loss is seen within the medial compartment the knee. 7. Small patellofemoral joint effusion. 8. Additional findings described above.
== END ==
PROVIDERS: PCP Emergency Medicine; Visit Provider Neuromusculoskeletal Medicine & OMM
DX: M25.561 Pain in right knee (principal)
CPT/HCPCS: 73721

== ENCOUNTER → 2023-06-08 17:07 | Outpatient (CLI) | payer OTHER, SELFPAY ==
[2023-06-08 15:09] LABS: Barbiturates Screen,Urine Negative ng/ml (<200)
[2023-06-08 15:10] LABS: Amphetamine/Metha Screen,Urine Negative ng/ml (<1000); Cannabinoid Screen,Urine Positive ng/ml (<50)
[2023-06-08 15:11] LABS: Benzodiazepines Screen,Urine Negative ng/ml (<200); Methadone Screen,Urine Negative ng/ml (<300)
[2023-06-08 15:12] LABS: Cocaine Screen,Urine Negative ng/ml (<300)
[2023-06-08 15:13] LABS: Opiate Screen,Urine Negative ng/ml (<300); Phencyclidine Screen,Urine Negative ng/ml (<25)
== END ==
PROVIDERS: PCP Emergency Medicine; Visit Provider Emergency Medicine
DX: Z79.899 Other long term (current) drug therapy (principal)
CPT/HCPCS: 80305

== ENCOUNTER → 2023-08-03 14:31 | Outpatient (CLI) | payer OTHER, SELFPAY ==
[2023-08-03 13:23] LABS: Amphetamine/Metha Screen,Urine Negative ng/ml (<1000)
[2023-08-03 13:26] LABS: Cannabinoid Screen,Urine Negative ng/ml (<50)
[2023-08-03 13:27] LABS: Barbiturates Screen,Urine Negative ng/ml (<200); Benzodiazepines Screen,Urine Negative ng/ml (<200)
[2023-08-03 13:28] LABS: Opiate Screen,Urine Negative ng/ml (<300)
[2023-08-03 13:29] LABS: Cocaine Screen,Urine Negative ng/ml (<300); Methadone Screen,Urine Negative ng/ml (<300)
[2023-08-03 13:31] LABS: Phencyclidine Screen,Urine Negative ng/ml (<25)
== END ==
PROVIDERS: PCP Nurse Practitioner Family; Visit Provider Nurse Practitioner Family
DX: F41.9 Anxiety disorder, unspecified (principal)
CPT/HCPCS: 80305

== ENCOUNTER 2024-01-29 13:23 | Emergency (ER) | payer OTHER, SELFPAY ==
[2024-01-29 14:00] VITALS: BP 162/83; PULSE 66; RESP 18; TEMP 37; O2SAT 98; BMI 25.2
--- NOTE | 2024-01-29 14:15 | XR_ITS ---
PROCEDURE INFORMATION: Exam: XR Right Wrist Exam date and time: 01/29/2024 2:12 PM Age: 53 years old Clinical indication: Weakness; Wrist; Right TECHNIQUE: Imaging protocol: Radiologic exam of the right wrist. Views: 3 or more views. COMPARISON: No relevant prior studies available. FINDINGS: Bones/joints: Normal. Moderate degenerative changes along the distal aspect of the lunate bone along the capitolunate joint. Soft tissues: Normal. IMPRESSION: No acute findings.
--- NOTE | 2024-01-29 14:22 | EXP.UTC ---
Discharge Plan Disposition Patient Disposition: Still a Patient Prescriptions Prescriptions: No Action buprenorphine-naloxone 8-2 mg tablet, sublingual 1 tab sublingual DAILY Patient Comments: DISSOLVE ONE TABLET UNDER THE TONGUE ONCE DAILY venlafaxine 150 mg capsule,extended release 24hr See Rx Instructions .ROUTE .COMPLEX Qty: 90 5RF Dose Instruction: TAKE ONE CAPSULE BY MOUTH EVERY DAY Rx Instructions: TAKE ONE CAPSULE BY MOUTH EVERY DAY carvedilol 25 mg tablet 25 mg PO DAILY Qty: 180 3RF Rx Instructions: TAKE ONE TABLET BY MOUTH TWICE DAILY atorvastatin 20 mg tablet See Rx Instructions .ROUTE .COMPLEX Qty: 30 1RF Dose Instruction: TAKE ONE TABLET BY MOUTH EVERY DAY FOR cholesterol Rx Instructions: TAKE ONE TABLET BY MOUTH EVERY DAY FOR cholesterol lisinopril 10 mg tablet See Rx Instructions .ROUTE .COMPLEX Qty: 90 5RF Dose Instruction: TAKE ONE TABLET BY MOUTH EVERY DAY Rx Instructions: TAKE ONE TABLET BY MOUTH EVERY DAY Referrals Follow up/Referrals: King Bosch DO [Primary Care Provider] - See instructions Discharge ED Provider: Lasha ([facility] [place] HPI General Stated complaint: right hand/arm numbness, throbbing Mode of Arrival: Ambulatory Source of Information: Patient Limitations: No Limitations Time Seen by Provider: 01/29/24 14:22 Description of Symptoms (Recalled from Triage Doc. 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 NO KNOWN INJURY HEENT Symptoms (Recalled from RN notes): No Resp Symptoms (Recalled from RN notes): No Skin Symptoms (Recalled from RN notes): No MS Symptoms (Recalled from RN notes): Yes Functional Status (Recalled from RN notes): WNL History of Present Illness Provider Complaint: 53 yr old male presents for c/o right hand/arm numbness, throbbing since sat Related Data Home Medications Medication Instructions Recorded Confirmed buprenorphine 8 mg-naloxone 2 mg 1 tab sublingual DAILY 06/08/23 01/29/24 sublingual tablet Previous Rx's Medication Instructions Recorded venlafaxine 150 mg See Rx Instructions .Route 03/10/23 capsule,extended release 24 hr .COMPLEX #90 caps carvedilol 25 mg tablet 25 mg PO DAILY htn #180 tabs 09/08/23 atorvastatin 20 mg tablet See Rx Instructions .Route 12/13/23 .COMPLEX #30 tabs lisinopril 10 mg tablet See Rx Instructions .Route 01/23/24 .COMPLEX #90 tabs Allergies Allergy/AdvReac Type Severity Reaction Status Date / Time nicotine [From Nicoderm CQ] Allergy Mild Rash Verified 08/03/23 09:15 tuberculin, purified protein Allergy Unknown Verified 08/03/23 09:15 deriva [TUBERCULIN, PURIFIED PROTEIN DERIVA] Worker's Comp Is this a Worker's Comp case?: No [facility] Disclaimer: The information contained in this section may have been updated after the patient was seen, as this information can be updated by other users. 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) Smoking Status: Current every day smoker tobacco type: cigarettes packs per day: 1 alcohol intake: never counseling provided: none substance use type: former substance user current occupational status: employed Travel in the last 8 weeks: None household members: family housing: house ROS Obtained: Yes All systems reviewed & no additional complaints except as documented Constitutional Constitutional: Reports system reviewed and no additional complaints, except as documented Eyes Eyes: Reports system reviewed and no additional complaints, except as documented ENT Ears, Nose, Mouth, and Throat: Reports system reviewed and no additional complaints, except as documented Cardiovascular Cardiovascular: Reports system reviewed and no additional complaints, except as documented Respiratory Respiratory: Reports system reviewed and no additional complaints, except as documented Musculoskeletal Musculoskeletal: Reports system reviewed and no additional complaints, except as documented, Reports as per HPI, Reports limited range of motion, Reports numbness, Reports radiating pain into limb and Reports other Integumentary/Breasts Skin/Breast: Reports system reviewed and no additional complaints, except as documented Neurologic Neurologic: Reports system reviewed and no additional complaints, except as documented, Reports as per HPI, Reports numbness and Reports paresthesias Endocrine Endocrine: Reports system reviewed and no additional complaints, except as documented Hematologic/Lymphatic Henatologic/Lymphatic: Reports system reviewed and no additional complaints, except as documented Allergic/Immunologic Allergic/Immunologic: Reports system reviewed and no additional complaints, except as documented Physical Exam General General appearance: alert and in no apparent distress Eye Eye exam: Present normal appearance ENT ENT exam: Present normal exam and normal oropharynx Respiratory Respiratory exam: Present normal lung sounds bilaterally Cardiovascular Cardiovascular exam: Present regular rate and normal rhythm Expanded Upper Extremity Exam Right: Forearm/Wrist exam: Present other (wrist is floppy, no tone, decrease credit card specialist) Neurological Exam Neurological exam: Present alert and oriented X3 Medical Decision Making Medical Records Medical records reviewed: Yes I reviewed the patient's medical records. MR Comment: report to Dr Raúl Ford Inquiry Pt receiving controlled substance: No Logan was queried for this patient: No Vital Signs: 01/29/24 14:00 Temperature 98.6 F Temperature Source Oral Pulse Rate [Left Brachial] 66 Respiratory Rate 18 Blood Pressure [Left Arm] 162/83 H Blood Pressure Mean [Left Arm] 109 Blood Pressure Source [Left Arm] Automatic Cuff Blood Pressure Position [Left Arm] Sitting 02 Sat by Pulse Oximetry 98 Oxygen Delivery Method Room Air Orders (Tests/Meds): ORDERS Category Date Time Status Wrist XR right minimum 3 views [XR wrist RT min 3V] Exams 01/29/24 14:15 Ordered Stat
--- NOTE | 2024-01-29 14:57 | ED_ITS ---
Discharge Plan Disposition Patient Disposition: Still a Patient Prescriptions Prescriptions: No Action buprenorphine-naloxone 8-2 mg tablet, sublingual 1 tab sublingual DAILY Patient Comments: DISSOLVE ONE TABLET UNDER THE TONGUE ONCE DAILY venlafaxine 150 mg capsule,extended release 24hr See Rx Instructions .ROUTE .COMPLEX Qty: 90 5RF Dose Instruction: TAKE ONE CAPSULE BY MOUTH EVERY DAY Rx Instructions: TAKE ONE CAPSULE BY MOUTH EVERY DAY carvedilol 25 mg tablet 25 mg PO DAILY Qty: 180 3RF Rx Instructions: TAKE ONE TABLET BY MOUTH TWICE DAILY atorvastatin 20 mg tablet See Rx Instructions .ROUTE .COMPLEX Qty: 30 1RF Dose Instruction: TAKE ONE TABLET BY MOUTH EVERY DAY FOR cholesterol Rx Instructions: TAKE ONE TABLET BY MOUTH EVERY DAY FOR cholesterol lisinopril 10 mg tablet See Rx Instructions .ROUTE .COMPLEX Qty: 90 5RF Dose Instruction: TAKE ONE TABLET BY MOUTH EVERY DAY Rx Instructions: TAKE ONE TABLET BY MOUTH EVERY DAY Referrals Follow up/Referrals: King Bosch DO [Primary Care Provider] - See instructions Discharge ED Provider: Shayy Gannon [facility] HPI General Chief complaint: Extremity Problem,Nontraumatic Stated complaint: right hand/arm numbness, throbbing Time Seen by Provider: 01/29/24 14:22 Mode of Arrival: Ambulatory Source of Information: Patient Limitations: No Limitations Description of Symptoms (Recalled from ER Triage Doc. 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 NO KNOWN INJURY Related Data Home Medications Medication Instructions Recorded Confirmed buprenorphine 8 mg-naloxone 2 mg 1 tab sublingual DAILY 06/08/23 01/29/24 sublingual tablet Previous Rx's Medication Instructions Recorded venlafaxine 150 mg See Rx Instructions .Route 03/10/23 capsule,extended release 24 hr .COMPLEX #90 caps carvedilol 25 mg tablet 25 mg PO DAILY htn #180 tabs 09/08/23 atorvastatin 20 mg tablet See Rx Instructions .Route 12/13/23 .COMPLEX #30 tabs lisinopril 10 mg tablet See Rx Instructions .Route 01/23/24 .COMPLEX #90 tabs Allergies Allergy/AdvReac Type Severity Reaction Status Date / Time nicotine [From Nicoderm CQ] Allergy Mild Rash Verified 08/03/23 09:15 tuberculin, purified protein Allergy Unknown Verified 08/03/23 09:15 deriva [TUBERCULIN, PURIFIED PROTEIN DERIVA] [facility] Disclaimer: The information contained in this section may have been updated after the patient was seen, as this information can be updated by other users. 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) Smoking Status: Current every day smoker tobacco type: cigarettes packs per day: 1 alcohol intake: never counseling provided: none substance use type: former substance user current occupational status: employed Travel in the last 8 weeks: None household members: family housing: house ROS Obtained: Yes Systems reviewed as appropriate & no additional complaints except as documented Physical Exam General General appearance: alert and in no apparent distress Head Head exam: atraumatic and normal inspection Eye Eye exam: Present normal appearance, PERRL and EOMI ENT ENT exam: Present normal exam, normal oropharynx and mucous membranes moist Neck Neck exam: Present normal inspection, full ROM and trachea midline; Absent lymphadenopathy Chest Chest inspection: Present normal inspection and symmetric chest wall rise Respiratory Respiratory exam: Present normal lung sounds bilaterally; Absent accessory muscle use Cardiovascular Cardiovascular exam: Present regular rate, normal rhythm, normal heart sounds, +S1 and +S2 Abdominal Exam Abdominal exam: Present soft and normal bowel sounds; Absent tenderness, guarding or rebound Extremities Exam Extremities exam: Present normal inspection and full ROM Neurological Exam Neurological exam: Present alert, oriented X3 and CN II-XII intact Psychiatric Psychiatric exam: Present normal affect and normal mood Skin Skin exam: Present warm, dry and normal color Lymphatic Lymphatic Findings: no adenopathy Medical Decision Making Vital Signs: 01/29/24 14:00 01/29/24 15:00 01/29/24 15:02 Temperature 98.6 F Temperature Source Oral Pulse Rate 59 L Pulse Rate [Left Brachial] 66 57 L Respiratory Rate 18 16 Blood Pressure 186/112 H Blood Pressure [Left Arm] 162/83 H 174/119 H Blood Pressure Mean [Left Arm] 109 137 Blood Pressure Source [Left Arm] Automatic Cuff Automatic Cuff Blood Pressure Position [Left Arm] Sitting 02 Sat by Pulse Oximetry 98 100 99 Oxygen Delivery Method Room Air Room Air 01/29/24 15:03 Temperature Temperature Source Pulse Rate 59 L Pulse Rate [Left Brachial] Respiratory Rate Blood Pressure 146/95 H Blood Pressure [Left Arm] Blood Pressure Mean [Left Arm] Blood Pressure Source [Left Arm] Blood Pressure Position [Left Arm] 02 Sat by Pulse Oximetry 99 Oxygen Delivery Method Room Air Orders (Tests/Meds): ORDERS Category Date Time Status Wrist XR right minimum 3 views [XR wrist RT min 3V] Exams 01/29/24 14:15 Completed Stat Medical Decision Narrative: In summary patient is a [age, sex] who presents to the emergency department for evaluation of [complaint]. Patient is [hemodynamically stable/unstable] upon arrival, [febrile/afebrile]. [Unremarkable physical exam, nonfocal exam versus focal remarkable exam]. Differential diagnosis includes [DDx]. Initial workup will be conducted with [hematologic labs, imaging, respiratory swab, describe workup]. Initial interventions include [crystalloid bolus, medications, p.o. challenge, etc.] initial workup reviewed by me [hematologic labs are remarkable for... Imaging remarkable for... Urinalysis remarkable for]. Upon repeat evaluation [patient had acceptable resolution of symptoms, had persistent pain for which additional interventions were conducted (describe interventions), tolerated p.o., was ambulatory, etc.]. Given this [patient is appropriate for discharge at this time and will be discharged with a prescription for... The case was discussed with hospital medicine regarding management and they will admit the patient their service for continued evaluation at this time... Etc.] Places where you can increase complexity: I informally interpreted the patient's chest x-ray or CT read and is remarkable for... Documenting what the monitor technician shows with rate and rhythm Consideration of test but deferring. Ex: I considered chest x-ray on this patient however given that they have no oxygen requirement and are clear to auscultation all lung nayak will be deferred. Social determinants of health: Given that patient is undomiciled increases complexity. Given that patient has polysubstance abuse compounds all aspects of care
[2024-01-29 15:00] VITALS: BP 186/112; PULSE 59; O2SAT 100
[2024-01-29 15:02] VITALS: BP 174/119; PULSE 57; RESP 16; O2SAT 99; BMI 25.1
[2024-01-29 15:03] VITALS: BP 146/95; PULSE 59; O2SAT 99
--- NOTE | 2024-01-29 15:23 | ED_ITS ---
<Statement entered by Shayy Gannon DO - 01/29/24 17:00> I was consulted by the EVELIN, and we discussed the complexity of the problems being addressed. I approved the treatment and management plan for this patient's care in the emergency department, thus performing a substantive portion of the medical decision making. Patient gives a classic story of waking up with his arm tucked up underneath him in an unusual position causing a radial nerve palsy. No other neurologic deficits on exam. Given this, no imaging performed in the ED. Patient was given instructions for expectant management and close outpatient follow up. Shayy Gannon DO Discharge Plan Disposition Patient Disposition: Home, Self-Care Condition: Good Prescriptions Prescriptions: No Action buprenorphine-naloxone 8-2 mg tablet, sublingual 1 tab sublingual DAILY Patient Comments: DISSOLVE ONE TABLET UNDER THE TONGUE ONCE DAILY venlafaxine 150 mg capsule,extended release 24hr See Rx Instructions .ROUTE .COMPLEX Qty: 90 5RF Dose Instruction: TAKE ONE CAPSULE BY MOUTH EVERY DAY Rx Instructions: TAKE ONE CAPSULE BY MOUTH EVERY DAY carvedilol 25 mg tablet 25 mg PO DAILY Qty: 180 3RF Rx Instructions: TAKE ONE TABLET BY MOUTH TWICE DAILY atorvastatin 20 mg tablet See Rx Instructions .ROUTE .COMPLEX Qty: 30 1RF Dose Instruction: TAKE ONE TABLET BY MOUTH EVERY DAY FOR cholesterol Rx Instructions: TAKE ONE TABLET BY MOUTH EVERY DAY FOR cholesterol lisinopril 10 mg tablet See Rx Instructions .ROUTE .COMPLEX Qty: 90 5RF Dose Instruction: TAKE ONE TABLET BY MOUTH EVERY DAY Rx Instructions: TAKE ONE TABLET BY MOUTH EVERY DAY Referrals Follow up/Referrals: King Bosch DO [Primary Care Provider] - See instructions Activity Restrictions/Add. Instructions Additional Instructions/Restrictions: You may wear a wrist brace as needed. Please call and schedule follow-up with your PCP for close follow-up. You may need referral to physical therapy or neurology or both. Return to ER for any worsening signs or symptoms. Clinical Impressions Clinical Impression: Right wrist drop Stand Alone Forms Stand Alone Forms: Work/School Release Discharge ED Provider: Shayy Gannon General Adult HPI General Chief complaint: Extremity Problem,Nontraumatic Stated complaint: right hand/arm numbness, throbbing Time Seen by Provider: 01/29/24 14:22 Mode of Arrival: Ambulatory Source of Information: Patient and Spouse Limitations: No Limitations Description of Symptoms (Recalled from ER Triage Doc. by RN): pt reports upon awakening yesterday his R wrist is limp. pt reports he is having 4/10 throbbing and sore pain in his R wrist that radiates up to his shoulder. pt reports he also has pins and needles in his R wrist and thumb. pt denies injury. History of Present Illness HPI narrative: Patient presents for evaluation of wrist drop of his right dominant hand. Patient states that he awoke on Tuesday morning with the inability to extend his wrist and fingers as well as his thumb. He denies any trauma or any other symptomology other than possibly sleeping on his right arm. Today he began having paresthesias to his thumb and index finger but is still regained all movement. He denies chest pain shortness of breath fever chills hemoptysis hematochezia melena nausea vomiting diarrhea vision changes headache neck pain shoulder pain. Related Data Home Medications Medication Instructions Recorded Confirmed buprenorphine 8 mg-naloxone 2 mg 1 tab sublingual DAILY 06/08/23 01/29/24 sublingual tablet Previous Rx's Medication Instructions Recorded venlafaxine 150 mg See Rx Instructions .Route 03/10/23 capsule,extended release 24 hr .COMPLEX #90 caps carvedilol 25 mg tablet 25 mg PO DAILY htn #180 tabs 09/08/23 atorvastatin 20 mg tablet See Rx Instructions .Route 12/13/23 .COMPLEX #30 tabs lisinopril 10 mg tablet See Rx Instructions .Route 01/23/24 .COMPLEX #90 tabs Allergies Allergy/AdvReac Type Severity Reaction Status Date / Time nicotine [From [facility]] Allergy Mild Rash Verified 08/03/23 09:15 tuberculin, purified protein Allergy Unknown Verified 08/03/23 09:15 deriva [TUBERCULIN, PURIFIED PROTEIN DERIVA] [facility] Disclaimer: The information contained in this section may have been updated after the patient was seen, as this information can be updated by other users. 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) Smoking Status: Current every day smoker tobacco type: cigarettes packs per day: 1 alcohol intake: never counseling provided: none substance use type: former substance user current occupational status: employed Travel in the last 8 weeks: None household members: family housing: house ROS Obtained: Yes Systems reviewed as appropriate & no additional complaints except as documented Physical Exam General General appearance: alert and in no apparent distress Respiratory Respiratory exam: Present normal lung sounds bilaterally Cardiovascular Cardiovascular exam: Present regular rate Neurological Exam Neurological exam: Present alert and oriented X3 Medical Decision Making Medical Records Medical records reviewed: Yes I reviewed the patient's medical records. [place] Inquiry Pt receiving controlled substance: No Vital Signs: 01/29/24 14:00 01/29/24 15:00 01/29/24 15:02 Temperature 98.6 F Temperature Source Oral Pulse Rate 59 L Pulse Rate [Left Brachial] 66 57 L Respiratory Rate 18 16 Blood Pressure 186/112 H Blood Pressure [Left Arm] 162/83 H 174/119 H Blood Pressure Mean [Left Arm] 109 137 Blood Pressure Source [Left Arm] Automatic Cuff Automatic Cuff Blood Pressure Position [Left Arm] Sitting 02 Sat by Pulse Oximetry 98 100 99 Oxygen Delivery Method Room Air Room Air 01/29/24 15:03 01/29/24 15:38 Temperature 98.6 F Temperature Source Pulse Rate 59 L 59 L Pulse Rate [Left Brachial] Respiratory Rate 16 Blood Pressure 146/95 H 146/95 H Blood Pressure [Left Arm] Blood Pressure Mean [Left Arm] Blood Pressure Source [Left Arm] Blood Pressure Position [Left Arm] 02 Sat by Pulse Oximetry 99 Oxygen Delivery Method Room Air Orders (Tests/Meds): ORDERS Category Date Time Status Wrist XR right minimum 3 views [XR wrist RT min 3V] Exams 01/29/24 14:15 Completed Stat Medical Decision Narrative: In summary patient is a 53-year-old [facility]. Patient is hemodynamically stable upon arrival, afebrile. Zickel exam is remarkable for radial nerve palsy that starts in the extensor compartment culminating in right wrist drop. Patient is tender to palpation at the lateral epicondyles but no obvious trauma. Patient is vascularly intact distally. Patient has intact sharp dull discrimination and 2 point discrimination.. Differential diagnosis includes radial nerve palsy, lacunar stroke, brachial plexus injury etc. Initial workup will be conducted with plain film x-rays which were read by radiology while the patient was in the urgent treatment center as negative for any bony abnormality. Given patient reports an acute onset and is limited to peripheral deficit MRI or further workup was considered but deemed not likely to be of benefit currently. Patient's Glascow coma score is 15 and he has no focal neurologic deficits other than the radial nerve. I had interactive discussion with the patient and his regarding his condition and explained that it may take days to weeks to resolve. We have referred him back to his PCP for close follow-up and possible PT referral and/or possible neurology referral for nerve conduction studies if necessary. Patient return to the emergency department if his symptoms worsen or change as needed. Patient verbalized understanding and agreement Critical Care Critical Care Time Critical Care Time: No
[2024-01-29 15:38] VITALS: BP 146/95; PULSE 59; RESP 16; TEMP 37
== END 2024-01-29 15:48 | disposition home or self-care (01) ==
LOC: UTC 14:56 → ER 14:56
PROVIDERS: Emergency Provider Emergency Medicine; PCP Internal Medicine
DX: M21.331 Wrist drop, right wrist (principal); M25.531 Pain in right wrist; R20.2 Paresthesia of skin; F17.210 Nicotine dependence, cigarettes, uncomplicated
CPT/HCPCS: 73110; 99283

== ENCOUNTER 2024-03-15 13:05 | Outpatient (CLI) | payer OTHER, SELFPAY ==
--- NOTE | 2024-03-15 13:08 | MR_ITS ---
FINAL REPORT TECHNIQUE: Multiplanar MR, without and with gadolinium enhancement CLINICAL HISTORY: injury/irritation right brachial plexius. 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 No obvious cervical canal stenosis is present. There is no mass, edema or abnormal signal change along the course of the brachial plexus. Thoracic outlet regions are unremarkable without obvious narrowing/compression. No adenopathy is present. IMPRESSION: Unremarkable noncontrast MR evaluation of brachial plexus Authenticated and ERN
== END 2024-03-15 23:59 | disposition home or self-care (01) ==
LOC: RAD 13:05
PROVIDERS: PCP Internal Medicine; Visit Provider Physician Assistant
DX: M21.331 Wrist drop, right wrist (principal)
CPT/HCPCS: 73218

== ENCOUNTER 2024-08-03 13:49 | Emergency (ER) | payer OTHER, SELFPAY ==
[2024-08-03 14:21] VITALS: BP 133/94; PULSE 65; RESP 20; TEMP 36.7; O2SAT 96; BMI 28.3
[2024-08-03 14:29] LABS: UTC Strep Screen (Rapid) Negative (Negative)
--- NOTE | 2024-08-03 14:29 | ED_ITS ---
Discharge Plan Disposition Patient Disposition: Home, Self-Care Condition: Good Prescriptions Prescriptions: New benzonatate 100 mg capsule 100 mg PO TIDP PRN (Reason: Cough) Qty: 30 0RF methylprednisolone 4 mg Tablets,Dose Pack 4 mg PO DIRECTED 6 Days Qty: 21 0RF Rx Instructions: Take 1 pack as directed for 6 days amoxicillin-pot clavulanate 875-125 mg Tablet 1 tab PO Q12H Qty: 20 0RF No Action buprenorphine-naloxone 8-2 mg tablet, sublingual 1 tab sublingual DAILY Patient Comments: DISSOLVE ONE TABLET UNDER THE TONGUE ONCE DAILY carvedilol 25 mg tablet 25 mg PO DAILY Qty: 180 3RF Rx Instructions: TAKE ONE TABLET BY MOUTH TWICE DAILY lisinopril 10 mg tablet See Rx Instructions .ROUTE .COMPLEX Qty: 90 5RF Dose Instruction: TAKE ONE TABLET BY MOUTH EVERY DAY Rx Instructions: TAKE ONE TABLET BY MOUTH EVERY DAY venlafaxine 150 mg capsule,extended release 24hr See Rx Instructions .ROUTE .COMPLEX Qty: 90 5RF Dose Instruction: TAKE ONE CAPSULE BY MOUTH EVERY DAY Rx Instructions: TAKE ONE CAPSULE BY MOUTH EVERY DAY atorvastatin 20 mg tablet See Rx Instructions .ROUTE .COMPLEX Qty: 90 1RF Dose Instruction: TAKE ONE TABLET BY MOUTH EVERY DAY FOR cholesterol Rx Instructions: TAKE ONE TABLET BY MOUTH EVERY DAY FOR cholesterol Referrals Follow up/Referrals: King Bosch DO [Primary Care Provider] - See instructions Activity Restrictions/Add. Instructions Additional Instructions/Restrictions: Drink plenty of fluids. Take tylenol or ibuprofen for pain or fever. Take the medications as directed. Follow up with your regular doctor. GO TO THE ER FOR ANY WORSENING SYMPTOMS Clinical Impressions Clinical Impression: Otitis media, Pharyngitis Stand Alone Forms Stand Alone Forms: Work/School Release Instructions Patient Instructions: Middle Ear Infection, DI for Pharyngitis/Tonsillopharyngitis -- Adult Print Language Print Language: Turkish Discharge ED Provider: Thee Crook [facility] General Stated complaint: sore throat Mode of Arrival: Ambulatory Source of Information: Patient Time Seen by Provider: 08/03/24 14:29 Description of Symptoms (Recalled from Triage Doc. by RN): SORE THROAT HEENT Symptoms (Recalled from RN notes): Yes Resp Symptoms (Recalled from RN notes): No Skin Symptoms (Recalled from RN notes): No MS Symptoms (Recalled from RN notes): No Functional Status (Recalled from RN notes): WNL Related Data Home Medications ?Medication ?Instructions ?Recorded ?Confirmed buprenorphine 8 mg-naloxone 2 mg 1 tab sublingual DAILY 06/08/23 02/07/24 sublingual tablet Previous Rx's ?Medication ?Instructions ?Recorded carvedilol 25 mg tablet 25 mg PO DAILY htn #180 tabs 09/08/23 lisinopril 10 mg tablet See Rx Instructions .Route 01/23/24 .COMPLEX #90 tabs venlafaxine 150 mg See Rx Instructions .Route 04/17/24 capsule,extended release 24 hr .COMPLEX #90 caps atorvastatin 20 mg tablet See Rx Instructions .Route 06/11/24 .COMPLEX #90 tabs amoxicillin 875 mg-potassium 1 tab PO Q12H #20 tabs 08/03/24 clavulanate 125 mg tablet benzonatate 100 mg capsule 100 mg PO TIDP PRN Cough #30 caps 08/03/24 methylprednisolone 4 mg tablets in 4 mg PO DIRECTED 6 days #21 tabs 08/03/24 a dose pack Allergies Allergy/AdvReac Type Severity Reaction Status Date / Time nicotine (From [facility]) Allergy Mild Rash Verified 02/07/24 15:39 tuberculin, purified protein Allergy Unknown Verified 02/07/24 15:39 deriva (TUBERCULIN, PURIFIED PROTEIN DERIVA) Worker's Comp Is this a Worker's Comp case?: No [facility] Disclaimer: The information contained in this section may have been updated after the patient was seen, as this information can be updated by other users. 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) Smoking Status: Current every day smoker tobacco type: cigarettes packs per day: 1 alcohol intake: never counseling provided: none substance use type: former substance user current occupational status: employed Travel in the last 8 weeks: None household members: family housing: house Have you lived/traveled outside [place] in past 30 days?: No Contact w/someone who lives/traveled outside [place] past 30 days?: No Exposure to someone with infectious disease in past 14 days?: No Do you have a fever (greater than 100.4 F or 38 C)?: No Have you tested positive for COVID-19: No Exposed to someone with COVID-19 in past 14 days?: No Do you have a sore throat?: Yes Do you have a cough?: No Do you have any weakness?: No Do you have any diarrhea?: No Are you experiencing any unusual bleeding?: No Do you have any muscle aches/pain?: No Do you have any abdominal pain?: No Are you experiencing loss of taste or smell?: No ROS Obtained: Yes All systems reviewed & no additional complaints except as documented Constitutional Constitutional: Denies chills, Reports fever(s) and Reports poor appetite Eyes Eyes: Denies eye discharge ENT Ears, Nose, Mouth, and Throat: Denies ear discharge, Reports otalgia, Denies hearing loss, Denies sinus pain and Reports sore throat Cardiovascular Cardiovascular: Denies chest pain and Denies dyspnea Respiratory Respiratory: Denies chest congestion, Reports cough and Denies dyspnea Gastrointestinal Gastrointestingal: Denies abdominal pain, diarrhea, nausea or vomiting Musculoskeletal Musculoskeletal: Denies arthralgias Integumentary/Breasts Skin/Breast: Denies rash Physical Exam General General appearance: alert and in no apparent distress Head Head exam: atraumatic, normocephalic and normal inspection Eye Eye exam: Present normal appearance; Absent PERRL or EOMI ENT ENT exam: Present mucous membranes moist and normal external ear exam Expanded ENT Exam TM/Canal exam: Bilateral TM: erythema, bulging and effusion Nose exam: Absent sinus tenderness Nasal speculum exam: Bilateral: normal Mouth exam: Present normal external inspection and other; Absent drooling Teeth exam: Present normal inspection Throat exam: Present tonsillar erythema and tonsillomegaly Neck Neck exam: Present normal inspection, full ROM and trachea midline; Absent tenderness, meningismus or lymphadenopathy Chest Chest inspection: Present normal inspection and symmetric chest wall rise; Absent tenderness Respiratory Respiratory exam: Present normal lung sounds bilaterally; Absent respiratory distress, wheezes or stridor Cardiovascular Cardiovascular exam: Present regular rate, normal rhythm and normal heart sounds; Absent tachycardia or irregular rhythm Abdominal Exam Abdominal exam: Present soft and normal bowel sounds; Absent distention, tenderness, guarding, rebound or rigidity Extremities Exam Extremities exam: Present normal inspection and normal capillary refill; Absent tenderness, joint swelling or calf tenderness Back Exam Back exam: Present normal inspection and full ROM; Absent tenderness, CVA tenderness (R) or CVA tenderness (L) Neurological Exam Neurological exam: Present alert, oriented X3, CN II-XII intact, normal gait and reflexes normal; Absent motor sensory deficit Psychiatric Psychiatric exam: Present normal affect and normal mood Skin Skin exam: Present warm, dry, intact and normal color Lymphatic Lymphatic Findings: no adenopathy Medical Decision Making Medical Records Medical records reviewed: No I reviewed the patient's medical records. Screening: Per USPSTF and CDC recommendations, given the prevalence of disease in our region, it is our hospital?s policy to screen for HIV and viral Hepatitis for all patients aged 18 and over and those with ongoing risk factors. [place] Inquiry Pt receiving controlled substance: No Vital Signs: 08/03/24 14:21 Temperature 98.1 F Temperature Source Oral Pulse Rate [Left Radial] 65 Respiratory Rate 20 Blood Pressure [Left Arm] 133/94 H Blood Pressure Mean [Left Arm] 107 02 Sat by Pulse Oximetry 96 Lab Data Lab results reviewed: Yes I reviewed the patient's lab results.
[2024-08-03 16:19] VITALS: BP 133/94; PULSE 65; RESP 20; TEMP 36.7
== END 2024-08-03 16:20 | disposition home or self-care (01) ==
PROVIDERS: Emergency Provider Nurse Practitioner Family; PCP Internal Medicine
DX: H66.93 Otitis media, unspecified, bilateral (principal); J02.9 Acute pharyngitis, unspecified
CPT/HCPCS: 87880; 99213; G0381

== ENCOUNTER 2024-10-28 17:41 | Emergency (ER) | payer OTHER, SELFPAY ==
[2024-10-28 17:48] VITALS: BP 176/118; PULSE 113; RESP 18; TEMP 36.6; O2SAT 98; BMI 28.7
[2024-10-28 18:08] LABS: Microscopic, Urine URINE MICROSCOPIC (MICROSCOPIC)
[2024-10-28 18:12] LABS: Coronavirus 19, PCR Not Detected (NotDetected); Influenza A, PCR Not Detected (NotDetected); Influenza B, PCR Not Detected (NotDetected)
[2024-10-28 18:21] LABS: Appearance,Urine Clear (Clear); Color,Urine Yellow (Yellow); Glucose,Urine (UA) Negative (Negative); Hemoglobin 15.9 g/dL (14.1-18.0); Mean Corpuscular Volume 88.2 fl (80-94); PH,Urine 6.5 (5.0-8.5); Protein,Urine Negative (Negative); Red Blood Count 5.33 M/mm3 (4.60-6.20); White Blood Count 9.5 K/mm3 (4.8-10.8)
[2024-10-28 18:22] LABS: Basophils % 0.3 % (0.1-2.0); Bilirubin,Urine Negative (Negative); Blood, Urine Negative (Negative); Eosinophils # 0.1 K/mm3 (0.0-0.4); Eosinophils % 0.6 % (0.1-12.0); Ketones,Urine Negative (Negative); Leukocyte Esterase,Urine Negative (Negative); Lymphocytes # 2.2 K/mm3 (0.7-4.5); Lymphocytes % 22.7 % (10-50); Mean Corpuscular HGB Conc 33.8 g/dL (31.8-35.4); Mean Corpuscular Hemoglobin 29.8 pg (27.0-31.2); Mean Platelet Volume 9.9 fl (7.4-10.4); Monocytes # 0.4 K/mm3 (0.1-1.0); Monocytes % 4.1 % (1.7-9.3); Neutrophils # 6.8 K/mm3 (1.8-7.8); Nitrate,Urine Negative (Negative); Platelet Count 249 K/mm3 (142-424); Red Cell Distribution Width 12.2 % (11.5-17.5); Urobilinogen,Urine 0.2 EU/dl (0.2)
[2024-10-28 18:33] LABS: Activated Partial Thrombo Time 28.4 seconds (22.8-30.6)
[2024-10-28 18:36] LABS: Chloride 99 mmol/L (98-107); Potassium 3.4 mmoL/L (3.5-5.1); Sodium 138 mmol/L (136-145)
[2024-10-28 18:39] LABS: Alanine Aminotransferase 29 U/L (12-78); Albumin/Globulin Ratio 1.5 (1.1-1.8); Alkaline Phosphatase 173 U/L (38-126); Anion Gap 16.4 mEq/L (5-15); Aspartate Amino Transferase 31 U/L (17-59); Blood Urea Nitrogen 14 mg/dl (9-20); Carbon Dioxide 26 mmol/L (22.0-30.0); Creatinine Clearance Estimated 139 mL/min (50-200); Estimated Glomerular Filt Rate 102 ml/min (>60); GFR (African American) 123 ML/MIN (>60); Globulin 3.3 g/dL (1.3-3.2); Total Protein,Serum 8.3 g/dl (6.3-8.2)
[2024-10-28 18:40] LABS: Bacteria,Urine Trace /lpf; Calcium 9.1 mg/dl (8.4-10.2); Glucose 153 mg/dl (74-100); WBC,Urine Occasional #/hpf (0-3)
[2024-10-28 19:41] VITALS: BP 146/98; PULSE 95; RESP 17; TEMP 36.9; O2SAT 99; BMI 28.7
[2024-10-28 20:33] VITALS: BP 146/98; PULSE 84; RESP 17; TEMP 36.9; O2SAT 99
--- NOTE | 2024-10-28 23:45 | ED_ITS ---
Discharge Plan Disposition Patient Disposition: Home, Self-Care Condition: Good Prescriptions Prescriptions: New ondansetron 4 mg tablet,disintegrating 4 mg PO Q8H PRN (Reason: nausea and vomiting) Qty: 10 0RF No Action buprenorphine-naloxone 8-2 mg tablet, sublingual 1 tab sublingual DAILY Patient Comments: DISSOLVE ONE TABLET UNDER THE TONGUE ONCE DAILY carvedilol 25 mg tablet 25 mg PO DAILY Qty: 180 3RF Rx Instructions: TAKE ONE TABLET BY MOUTH TWICE DAILY lisinopril 10 mg tablet See Rx Instructions .ROUTE .COMPLEX Qty: 90 5RF Dose Instruction: TAKE ONE TABLET BY MOUTH EVERY DAY Rx Instructions: TAKE ONE TABLET BY MOUTH EVERY DAY venlafaxine 150 mg capsule,extended release 24hr See Rx Instructions .ROUTE .COMPLEX Qty: 90 5RF Dose Instruction: TAKE ONE CAPSULE BY MOUTH EVERY DAY Rx Instructions: TAKE ONE CAPSULE BY MOUTH EVERY DAY atorvastatin 20 mg tablet See Rx Instructions .ROUTE .COMPLEX Qty: 90 1RF Dose Instruction: TAKE ONE TABLET BY MOUTH EVERY DAY FOR cholesterol Rx Instructions: TAKE ONE TABLET BY MOUTH EVERY DAY FOR cholesterol benzonatate 100 mg capsule 100 mg PO TIDP PRN (Reason: Cough) Qty: 30 0RF methylprednisolone 4 mg Tablets,Dose Pack 4 mg PO DIRECTED 6 Days Qty: 21 0RF Rx Instructions: Take 1 pack as directed for 6 days amoxicillin-pot clavulanate 875-125 mg Tablet 1 tab PO Q12H Qty: 20 0RF Referrals Follow up/Referrals: King Bosch DO [Primary Care Provider] - See instructions Activity Restrictions/Add. Instructions Additional Instructions/Restrictions: You were seen for likely viral illness. Follow up if symptoms worsen. See your PCP this week. Clinical Impressions Clinical Impression: Acute viral syndrome Stand Alone Forms Stand Alone Forms: Work/School Release Instructions Patient Instructions: DI for Nausea -- Adult Print Language Print Language: Azerbaijani Discharge ED Provider: Kj Haas General Adult HPI <AUDRA Jimenez - Last Filed: 10/28/24 23:49> General Chief complaint: Nausea/Vomiting/Diarrhea Stated complaint: vomitng, fever Time Seen by Provider: 10/28/24 19:58 Mode of Arrival: Ambulatory Source of Information: Patient Description of Symptoms (Recalled from ER Triage Doc. by RN): Starting vomiting 3 days ago. Reports having a temp 101. Reports that he was exposed to ill people at his work but he denies knowing what they were sick with. Denies any diarrhea. History of Present Illness HPI narrative: Patient presents with cough, congestion, fever. He has also had some nausea and vomiting. His fever has resolved, no fever since Tuesday. He did have 1 episode of nausea and vomiting this morning. Denies any diarrhea. He has had multiple sick contacts at work, some were flu positive.Patient needed to get tested to return to work. MD complaint: fever, URI symptoms Onset (ago): day(s) Radiation: non-radiation Consistency: other (improved ) Relieving factors: none Exacerbating factors: none Associated symptoms: denies other symptoms Related Data Home Medications ?Medication ?Instructions ?Recorded ?Confirmed buprenorphine 8 mg-naloxone 2 mg 1 tab sublingual DAILY 06/08/23 02/07/24 sublingual tablet Previous Rx's ?Medication ?Instructions ?Recorded carvedilol 25 mg tablet 25 mg PO DAILY htn #180 tabs 09/08/23 lisinopril 10 mg tablet See Rx Instructions .Route 01/23/24 .COMPLEX #90 tabs venlafaxine 150 mg See Rx Instructions .Route 04/17/24 capsule,extended release 24 hr .COMPLEX #90 caps atorvastatin 20 mg tablet See Rx Instructions .Route 06/11/24 .COMPLEX #90 tabs amoxicillin 875 mg-potassium 1 tab PO Q12H #20 tabs 08/03/24 clavulanate 125 mg tablet benzonatate 100 mg capsule 100 mg PO TIDP PRN Cough #30 caps 08/03/24 methylprednisolone 4 mg tablets in 4 mg PO DIRECTED 6 days #21 tabs 08/03/24 a dose pack ondansetron 4 mg disintegrating 4 mg PO Q8H PRN nausea and 10/28/24 tablet vomiting #10 tabs Allergies Allergy/AdvReac Type Severity Reaction Status Date / Time nicotine (From [facility]) Allergy Mild Rash Verified 10/28/24 19:53 tuberculin, purified protein Allergy Unknown Unknown Unverified 10/28/24 19:52 deriva (TUBERCULIN, PURIFIED allergy PROTEIN DERIVA) reaction PFS <AUDRA Jimenez - Last Filed: 10/28/24 23:49> [facility] Disclaimer: The information contained in this section may have been updated after the patient was seen, as this information can be updated by other users. 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) Smoking Status: Current every day smoker tobacco type: cigarettes packs per day: 1 alcohol intake: never counseling provided: none substance use type: former substance user current occupational status: employed Travel in the last 8 weeks: None household members: family housing: house Have you lived/traveled outside [place] in past 30 days?: No Contact w/someone who lives/traveled outside US past 30 days?: No Exposure to someone with infectious disease in past 14 days?: No Do you have a fever (greater than 100.4 F or 38 C)?: Yes Have you tested positive for COVID-19: No Exposed to someone with COVID-19 in past 14 days?: No Do you have a sore throat?: No Do you have a cough?: No Do you have any weakness?: No Do you have any diarrhea?: No Are you experiencing any unusual bleeding?: No Do you have any muscle aches/pain?: No Do you have any abdominal pain?: No Are you experiencing loss of taste or smell?: No Other 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 Have you received the Flu Vaccine for this season: No Have you received the Pneumonia Vaccine: No <AUDRA Jimenez - Last Filed: 10/28/24 23:49> ROS Obtained: Yes Systems reviewed as appropriate & no additional complaints except as documented Physical Exam <AUDRA Jimenez - Last Filed: 10/28/24 23:49> General General appearance: alert and in no apparent distress Head Head exam: atraumatic and normocephalic Eye Eye exam: Present normal appearance and EOMI ENT ENT exam: Present normal exam Chest Chest inspection: Present symmetric chest wall rise Respiratory Respiratory exam: Present normal lung sounds bilaterally; Absent wheezes or stridor Cardiovascular Cardiovascular exam: Present regular rate and normal rhythm; Absent systolic murmur Abdominal Exam Abdominal exam: Present soft; Absent distention, tenderness or guarding Extremities Exam Extremities exam: Present full ROM Neurological Exam Neurological exam: Present alert and oriented X3 Psychiatric Psychiatric exam: Present normal affect and normal mood Skin Skin exam: Present warm, dry and intact Medical Decision Making <AUDRA Jimenez - Last Filed: 10/28/24 23:49> Medical Records Screening: Per USPSTF and CDC recommendations, given the prevalence of disease in our region, it is our hospital?s policy to screen for HIV and viral Hepatitis for all patients aged 18 and over and those with ongoing risk factors. [place] Inquiry Pt receiving controlled substance: No Vital Signs: 10/28/24 17:48 10/28/24 19:41 10/28/24 20:33 Temperature 97.8 F 98.5 F 98.5 F Temperature Source Oral Oral Oral Pulse Rate 84 Pulse Rate [Radial] 113 H 95 H Respiratory Rate 18 17 17 Blood Pressure 146/98 H Blood Pressure [R Arm] 176/118 H 146/98 H Blood Pressure Mean [R Arm] 137 114 Blood Pressure Source [R Arm] Automatic Cuff Automatic Cuff Blood Pressure Position [R Arm] Sitting Standing 02 Sat by Pulse Oximetry 98 99 Oxygen Delivery Method Room Air Room Air Room Air Lab Data Lab Results 10/28/24 17:53: WBC 9.5, RBC 5.33, Hgb 15.9, Hct 47.0, MCV 88.2, MCH 29.8, MCHC 33.8, RDW 12.2, Plt Count 249, MPV 9.9, Neut % (Auto) 72.0, Lymph % (Auto) 22.7, [place] % (Auto) 4.1, Eos % (Auto) 0.6, Baso % (Auto) 0.3, Neut # (Auto) 6.8, Lymph # (Auto) 2.2, [place] # (Auto) 0.4, Eos # (Auto) 0.1, Baso # (Auto) 0.0, APTT 28.4, Sodium 138, Potassium 3.4 L, Chloride 99, Carbon Dioxide 26, Anion Gap 16.4 H, BUN 14, Creatinine 0.80, Estimated Creat Clear 139, Estimated GFR 102, Est GFR ( Amer) 123, Glucose 153 H, Calcium 9.1, Total Bilirubin 1.0, AST 31, ALT 29, Alkaline Phosphatase 173 H, Total Protein 8.3 H D, Albumin 5.0, Globulin 3.3 H, Albumin/Globulin Ratio 1.5, Urine Color Yellow, Urine Appearance Clear, Urine pH 6.5, Ur Specific [place] 1.010, Urine Protein Negative, Urine Glucose (UA) Negative, Urine Ketones Negative, Urine Blood Negative, Urine Nitrate Negative, Urine Bilirubin Negative, Urine Urobilinogen 0.2, Ur Leukocyte Esterase Negative, Urine RBC None, Urine WBC Occasional, Ur Squamous Epith Cells None, Urine Bacteria Trace, SARS-CoV-2 (PCR) Not detected, Influenza A Untype (PCR) Not detected, Influenza Type B (PCR) Not detected 10/28/24 17:53 10/28/24 17:53 Orders (Tests/Meds): ORDERS Category Date Time Status Activated Partial Thrombo Time Stat Lab 10/28/24 17:53 Completed Complete Blood Count Auto Diff Stat Lab 10/28/24 17:53 Completed Comprehensive Metabolic Panel Stat Lab 10/28/24 17:53 Completed Rapid PCR Covid and Flu A/B Stat Lab 10/28/24 17:53 Completed Urinalysis and Microscopic Stat Lab 10/28/24 17:53 Completed Medical Decision Narrative: In summary patient is a 53-year-old who presents the emergency department for evaluation of fever, respiratory send. Patient is hemodynamically stable upon arrival, afebrile. Unremarkable physical exam. Differential diagnosis includes influenza, COVID, gastroenteritis, dehydration. Initial workup will be conducted with labs, COVID/flu. Upon repeat evaluation patient had acceptable resolution of symptoms. Given this patient is appropriate for discharge home with a prescription for Zofran. Follow-up with PCP this week. Return to emergency department for new or worsening symptoms.. <Kj Haas MD - Last Filed: 10/28/24 23:55> Vital Signs: 10/28/24 17:48 10/28/24 19:41 10/28/24 20:33 Temperature 97.8 F 98.5 F 98.5 F Temperature Source Oral Oral Oral Pulse Rate 84 Pulse Rate [Radial] 113 H 95 H Respiratory Rate 18 17 17 Blood Pressure 146/98 H Blood Pressure [R Arm] 176/118 H 146/98 H Blood Pressure Mean [R Arm] 137 114 Blood Pressure Source [R Arm] Automatic Cuff Automatic Cuff Blood Pressure Position [R Arm] Sitting Standing 02 Sat by Pulse Oximetry 98 99 Oxygen Delivery Method Room Air Room Air Room Air Lab Data Lab Results 10/28/24 17:53: WBC 9.5, RBC 5.33, Hgb 15.9, Hct 47.0, MCV 88.2, MCH 29.8, MCHC 33.8, RDW 12.2, Plt Count 249, MPV 9.9, Neut % (Auto) 72.0, Lymph % (Auto) 22.7, [place] % (Auto) 4.1, Eos % (Auto) 0.6, Baso % (Auto) 0.3, Neut # (Auto) 6.8, Lymph # (Auto) 2.2, [place] # (Auto) 0.4, Eos # (Auto) 0.1, Baso # (Auto) 0.0, APTT 28.4, Sodium 138, Potassium 3.4 L, Chloride 99, Carbon Dioxide 26, Anion Gap 16.4 H, BUN 14, Creatinine 0.80, Estimated Creat Clear 139, Estimated GFR 102, Est GFR ( Amer) 123, Glucose 153 H, Calcium 9.1, Total Bilirubin 1.0, AST 31, ALT 29, Alkaline Phosphatase 173 H, Total Protein 8.3 H D, Albumin 5.0, Globulin 3.3 H, Albumin/Globulin Ratio 1.5, Urine Color Yellow, Urine Appearance Clear, Urine pH 6.5, Ur Specific [place] 1.010, Urine Protein Negative, Urine Glucose (UA) Negative, Urine Ketones Negative, Urine Blood Negative, Urine Nitrate Negative, Urine Bilirubin Negative, Urine Urobilinogen 0.2, Ur Leukocyte Esterase Negative, Urine RBC None, Urine WBC Occasional, Ur Squamous Epith Cells None, Urine Bacteria Trace, SARS-CoV-2 (PCR) Not detected, Influenza A Untype (PCR) Not detected, Influenza Type B (PCR) Not detected Orders (Tests/Meds): ORDERS Category Date Time Status Activated Partial Thrombo Time Stat Lab 10/28/24 17:53 Completed Complete Blood Count Auto Diff Stat Lab 10/28/24 17:53 Completed Comprehensive Metabolic Panel Stat Lab 10/28/24 17:53 Completed Rapid PCR Covid and Flu A/B Stat Lab 10/28/24 17:53 Completed Urinalysis and Microscopic Stat Lab 10/28/24 17:53 Completed Medical Decision Narrative: In summary patient is a 53-year-old who presents the emergency department for evaluation of fever, respiratory send. Patient is hemodynamically stable upon arrival, afebrile. Unremarkable physical exam. Differential diagnosis includes influenza, COVID, gastroenteritis, dehydration. Initial workup will be conducted with labs, COVID/flu. Upon repeat evaluation patient had acceptable resolution of symptoms. Given this patient is appropriate for discharge home with a prescription for Zofran. Follow-up with PCP this week. Return to emergency department for new or worsening symptoms.. I was consulted by the EVELIN, and we discussed the complexity of the problems being addressed.I approved the treatment and management plan for this patient?s care in the Emergency Department, thus performing a substantive portion of the medical decision making.Signed, Kj Haas MD [facility] <AUDRA Jimenez - Last Filed: 10/28/24 23:49> Critical Care Time Critical Care Time: No
== END 2024-10-28 20:35 | disposition home or self-care (01) ==
PROVIDERS: Emergency Provider Emergency Medicine; PCP Internal Medicine
DX: B34.9 Viral infection, unspecified (principal); R05.9 Cough, unspecified; R50.9 Fever, unspecified; R09.81 Nasal congestion; R11.2 Nausea with vomiting, unspecified; F17.210 Nicotine dependence, cigarettes, uncomplicated
CPT/HCPCS: 80053; 81001; 85025; 85730; 87636; 99283

== ENCOUNTER 2024-10-31 11:07 | Emergency (ER) | payer OTHER, SELFPAY ==
--- NOTE | 2024-10-31 11:11 | ECG_ITS ---
APPROVED REPORT Exam: Resting ECG HR:101 bpm ECG Measurements Heart Rate 101 AXES W[place] 156 P 73 QRSd 102 QRS 56 QT 347 T 74 QTc 405 Conclusion SINUS TACHYCARDIA ABNORMAL RHYTHM ECG Nonspecific ST changes Electronically signed by : STEVEN ROMAN, 11/02/2024 10:54:36
[2024-10-31 11:20] VITALS: BP 159/120; PULSE 111; RESP 24; TEMP 36.6; O2SAT 98; BMI 28.7
--- NOTE | 2024-10-31 11:24 | PC.NURSE ---
DR CASTELLANOS AT BEDSIDE
--- NOTE | 2024-10-31 11:29 | XR_ITS ---
FINAL REPORT CLINICAL HISTORY: Palpitations, shortness of breath COMPARISON: 07/10/2022 FINDINGS: A single view of the chest was obtained. The heart size is normal. The mediastinum is normal. There is no focal infiltrate or edema. There are no pleural effusions. There is no pneumothorax. There is no osseous abnormality. IMPRESSION: No acute cardiopulmonary process Reviewed, Interpreted and Dictated by Britton Burton MD Transcribed by Pat Nicholson Authenticated and [facility]
[2024-10-31 11:30] VITALS: BP 147/100; RESP 19; O2SAT 96
[2024-10-31 11:38] LABS: Basophils # 0.1 K/mm3 (0-0.2); Basophils % 0.3 % (0.1-2.0); Eosinophils # 0.1 K/mm3 (0.0-0.4); Eosinophils % 0.3 % (0.1-12.0); Hematocrit 43.4 % (42.0-52.0); Hemoglobin 15.1 g/dL (14.1-18.0); Lymphocytes # 1.6 K/mm3 (0.7-4.5); Lymphocytes % 10.8 % (10-50); Mean Corpuscular HGB Conc 34.8 g/dL (31.8-35.4); Mean Corpuscular Volume 86.3 fl (80-94); Mean Platelet Volume 9.9 fl (7.4-10.4); Monocytes # 0.5 K/mm3 (0.1-1.0); Monocytes % 3.2 % (1.7-9.3); Neutrophils # 12.6 K/mm3 (1.8-7.8); Neutrophils % 85.1 % (37.0-80.0); Platelet Count 290 K/mm3 (142-424); Red Blood Count 5.03 M/mm3 (4.60-6.20); Red Cell Distribution Width 12.2 % (11.5-17.5); White Blood Count 14.9 K/mm3 (4.8-10.8)
[2024-10-31] MEDS: CARVEDILOL 25MG TABLET 25 MG PO (11:46)
[2024-10-31 11:56] LABS: Alanine Aminotransferase 32 U/L (12-78); Albumin Level 4.9 g/dl (3.5-5.0); Alkaline Phosphatase 168 U/L (38-126); Anion Gap 15.1 mEq/L (5-15); Aspartate Amino Transferase 36 U/L (17-59); Bilirubin,Total 1.2 mg/dl (0.2-1.3); Blood Urea Nitrogen 12 mg/dl (9-20); Calcium 9.2 mg/dl (8.4-10.2); Carbon Dioxide 23 mmol/L (22.0-30.0); Chloride 101 mmol/L (98-107); Creatinine Clearance Estimated 123 mL/min (50-200); Estimated Glomerular Filt Rate 89 ml/min (>60); GFR (African American) 107 ML/MIN (>60); Glucose 199 mg/dl (74-100); Magnesium 1.7 mg/dl (1.6-2.3); Potassium 3.1 mmoL/L (3.5-5.1); Sodium 136 mmol/L (136-145)
[2024-10-31 12:00] VITALS: BP 132/94; RESP 29
[2024-10-31 12:08] LABS: NT Pro Brain Natriuretic Pep. 41.5 pg/mL (0-125)
[2024-10-31 12:09] LABS: Troponin I < 0.01 ng/ml (0.00-0.034)
[2024-10-31 12:11] LABS: Albumin/Globulin Ratio 1.7 (1.1-1.8); Globulin 2.9 g/dL (1.3-3.2); Total Protein,Serum 7.8 g/dl (6.3-8.2)
--- NOTE | 2024-10-31 12:29 | ED_ITS ---
Discharge Plan Disposition Patient Disposition: Home, Self-Care Condition: Good Prescriptions Prescriptions: New carvedilol 25 mg tablet 25 mg PO DAILY 10 Days Qty: 10 0RF Rx Instructions: must administer with a meal/food No Action buprenorphine-naloxone 8-2 mg tablet, sublingual 1 tab sublingual DAILY Patient Comments: DISSOLVE ONE TABLET UNDER THE TONGUE ONCE DAILY carvedilol 25 mg tablet 25 mg PO DAILY Qty: 180 3RF Rx Instructions: TAKE ONE TABLET BY MOUTH TWICE DAILY lisinopril 10 mg tablet See Rx Instructions .ROUTE .COMPLEX Qty: 90 5RF Dose Instruction: TAKE ONE TABLET BY MOUTH EVERY DAY Rx Instructions: TAKE ONE TABLET BY MOUTH EVERY DAY venlafaxine 150 mg capsule,extended release 24hr See Rx Instructions .ROUTE .COMPLEX Qty: 90 5RF Dose Instruction: TAKE ONE CAPSULE BY MOUTH EVERY DAY Rx Instructions: TAKE ONE CAPSULE BY MOUTH EVERY DAY atorvastatin 20 mg tablet See Rx Instructions .ROUTE .COMPLEX Qty: 90 1RF Dose Instruction: TAKE ONE TABLET BY MOUTH EVERY DAY FOR cholesterol Rx Instructions: TAKE ONE TABLET BY MOUTH EVERY DAY FOR cholesterol ondansetron 4 mg tablet,disintegrating 4 mg PO Q8H PRN (Reason: nausea and vomiting) Qty: 10 0RF benzonatate 100 mg capsule 100 mg PO TIDP PRN (Reason: Cough) Qty: 30 0RF methylprednisolone 4 mg Tablets,Dose Pack 4 mg PO DIRECTED 6 Days Qty: 21 0RF Rx Instructions: Take 1 pack as directed for 6 days amoxicillin-pot clavulanate 875-125 mg Tablet 1 tab PO Q12H Qty: 20 0RF Referrals Follow up/Referrals: King Bosch DO [Primary Care Provider] - See instructions Activity Restrictions/Add. Instructions Additional Instructions/Restrictions: Take the carvedilol daily as prescribed. Follow-up with your primary care physician for refill on the as previously discussed. If you develop any new or worsening symptoms, or if you become concerned for your health for any reason, return to the emergency department for evaluation Clinical Impressions Clinical Impression: Tachycardia, Shortness of breath, Heart palpitations Stand Alone Forms Stand Alone Forms: Work/School Release Print Language Print Language: Divehi Discharge ED Provider: Yadiel Kerr Adult [facility] General Chief complaint: PAIN Stated complaint: CP Time Seen by Provider: 10/31/24 11:23 Mode of Arrival: Ambulatory Source of Information: Patient Description of Symptoms (Recalled from ER Triage Doc. by RN): pt presents to ED with c/o chest tightness, vomitting, dizziness. pt reports his symptoms happen when he gets hot. pt reports he was at work when symptoms happened. pt ran out of carvedilol 8 days ago. History of Present Illness HPI narrative: Alexsander Montgomery is a 53-year-old male with a history of hyperlipidemia, hypertension, elevated heart rate and was previously on carvedilol who presents to the emergency department for complaints of elevated heart rate and fluttering in his chest. Patient states that he is switching primary care physicians and has been on carvedilol for many many years, however he ran out 8 days ago and since he is switching primary care doctors, his original primary care doctor would not fill it. He states that over the last 2 days, while at work, he developed fluttering in his chest while exerting himself and felt hot overall. He reports no chest pain or shortness of breath. He states that getting up and walking a short distance will oftentimes make him short of breath since he has been off of his medication. He does report some vomiting but states that it only occurs when he exerts himself and gets hot. Related Data Home Medications ?Medication ?Instructions ?Recorded ?Confirmed buprenorphine 8 mg-naloxone 2 mg 1 tab sublingual DAILY 06/08/23 02/07/24 sublingual tablet Previous Rx's ?Medication ?Instructions ?Recorded carvedilol 25 mg tablet 25 mg PO DAILY htn #180 tabs 09/08/23 lisinopril 10 mg tablet See Rx Instructions .Route 01/23/24 .COMPLEX #90 tabs venlafaxine 150 mg See Rx Instructions .Route 04/17/24 capsule,extended release 24 hr .COMPLEX #90 caps atorvastatin 20 mg tablet See Rx Instructions .Route 06/11/24 .COMPLEX #90 tabs amoxicillin 875 mg-potassium 1 tab PO Q12H #20 tabs 08/03/24 clavulanate 125 mg tablet benzonatate 100 mg capsule 100 mg PO TIDP PRN Cough #30 caps 08/03/24 methylprednisolone 4 mg tablets in 4 mg PO DIRECTED 6 days #21 tabs 08/03/24 a dose pack ondansetron 4 mg disintegrating 4 mg PO Q8H PRN nausea and 03/09/25 tablet vomiting #10 tabs carvedilol 25 mg tablet 25 mg PO DAILY 10 days #10 tabs 10/31/24 Allergies Allergy/AdvReac Type Severity Reaction Status Date / Time nicotine (From Nicoderm CQ) Allergy Mild Rash Verified 10/28/24 19:53 tuberculin, purified protein Allergy Mild Blister Verified 10/31/24 12:37 deriva (TUBERCULIN, PURIFIED PROTEIN DERIVA) [facility] Disclaimer: The information contained in this section may have been updated after the patient was seen, as this information can be updated by other users. 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) Smoking Status: Current every day smoker tobacco type: cigarettes packs per day: 1 alcohol intake: never counseling provided: none substance use type: former substance user current occupational status: employed Travel in the last 8 weeks: None household members: family housing: house Have you lived/traveled outside US in past 30 days?: No Contact w/someone who lives/traveled outside US past 30 days?: No Exposure to someone with infectious disease in past 14 days?: No Do you have a fever (greater than 100.4 F or 38 C)?: No Have you tested positive for COVID-19: No Exposed to someone with COVID-19 in past 14 days?: No Do you have a sore throat?: No Do you have a cough?: No Do you have any weakness?: No Do you have any diarrhea?: No Are you experiencing any unusual bleeding?: No Do you have any muscle aches/pain?: No Do you have any abdominal pain?: No Are you experiencing loss of taste or smell?: No Other 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 Have you received the Flu Vaccine for this season: No Have you received the Pneumonia Vaccine: No ROS Obtained: Yes Systems reviewed as appropriate & no additional complaints except as documented Physical Exam General General appearance: alert and in no apparent distress Head Head exam: atraumatic Eye Eye exam: Present normal appearance ENT ENT exam: Present normal external ear exam Neck Neck exam: Present full ROM Chest Chest inspection: Present symmetric chest wall rise Respiratory Respiratory exam: Present normal lung sounds bilaterally; Absent respiratory distress Cardiovascular Cardiovascular exam: Present normal rhythm and tachycardia Abdominal Exam Abdominal exam: Present soft; Absent tenderness or guarding exam: Present deferred Extremities Exam Extremities exam: Present normal inspection Back Exam Back exam: Present normal inspection Neurological Exam Neurological exam: Present alert and oriented X3 Psychiatric Psychiatric exam: Present normal affect Skin Skin exam: Present warm and dry Medical Decision Making Medical Records Screening: Per USPSTF and CDC recommendations, given the prevalence of disease in our region, it is our hospital?s policy to screen for HIV and viral Hepatitis for all patients aged 18 and over and those with ongoing risk factors. [place] Inquiry Pt receiving controlled substance: No Vital Signs: 10/31/24 11:20 10/31/24 11:30 10/31/24 12:00 Temperature 97.9 F Temperature Source Oral Pulse Rate Pulse Rate [Left Radial] 111 H Respiratory Rate 24 19 29 H Blood Pressure 147/100 H 132/94 H Blood Pressure [Right Arm] 159/120 H Blood Pressure Mean [Right Arm] 133 02 Sat by Pulse Oximetry 98 96 Oxygen Delivery Method Room Air 10/31/24 12:30 10/31/24 13:44 Temperature 98.5 F Temperature Source Pulse Rate 81 Pulse Rate [Left Radial] Respiratory Rate 15 20 Blood Pressure 119/87 121/83 Blood Pressure [Right Arm] Blood Pressure Mean [Right Arm] 02 Sat by Pulse Oximetry Oxygen Delivery Method Room Air Lab Data Lab Results 10/31/24 11:16: WBC 14.9 H D, RBC 5.03, Hgb 15.1, Hct 43.4, MCV 86.3, MCH 30.0, MCHC 34.8, RDW 12.2, Plt Count 290, MPV 9.9, Neut % (Auto) 85.1 H, Lymph % (Auto) 10.8, Rice % (Auto) 3.2, Eos % (Auto) 0.3, Baso % (Auto) 0.3, Neut # (Auto) 12.6 H, Lymph # (Auto) 1.6, Rice # (Auto) 0.5, Eos # (Auto) 0.1, Baso # (Auto) 0.1, D-Dimer 0.40, Sodium 136, Potassium 3.1 L, Chloride 101, Carbon Dioxide 23, Anion Gap 15.1 H, BUN 12, Creatinine 0.90, Estimated Creat Clear 123, Estimated GFR 89, Est GFR ( Amer) 107, Glucose 199 H, Calcium 9.2, Magnesium 1.7, Total Bilirubin 1.2, AST 36, ALT 32, Alkaline Phosphatase 168 H, Troponin I < 0.01, NT-Pro-B Natriuret Pep 41.5, Total Protein 7.8, Albumin 4.9, Globulin 2.9, Albumin/Globulin Ratio 1.7, HCV Ab MAGGIE w/Rflx PCR Qn Negative, HIV Ag/Ab Combo Qual Negative 10/31/24 11:16 10/31/24 11:16 Orders (Tests/Meds): ED MEDICATIONS Discontinued Medications Generic Name Dose Route Start Last Admin Trade Name Freq PRN Reason Stop Dose Admin Carvedilol 25 mg 10/31/24 11:30 10/31/24 11:46 Carvedilol 25mg Tablet PO 10/31/24 11:31 25 mg ONCE ONE Administration Potassium Chloride 40 meq 10/31/24 12:36 10/31/24 12:41 Potassium Chloride 20meq Tab PO 10/31/24 12:37 40 meq ONCE ONE Administration ORDERS Category Date Time Status Consult Data Scientist [CONS] Routine Cons 10/31/24 12:11 Active CXR --portable [XR chest portable] Stat Exams 10/31/24 11:29 Completed BNP [NT Pro Brain Natriuretic Pep.] Stat Lab 10/31/24 11:16 Completed CBC w/Auto Diff [Complete Blood Count Auto Diff] Stat Lab 10/31/24 11:16 Completed CMP [Comprehensive Metabolic Panel] Stat Lab 10/31/24 11:16 Completed D-Dimer Stat Lab 10/31/24 11:16 Completed HIV Combo Stat Lab 10/31/24 11:16 Completed Hepatitis C Ab Qual. W/ RFX Stat Lab 10/31/24 11:16 Completed Magnesium Stat Lab 10/31/24 11:16 Completed Troponin I Stat Lab 10/31/24 11:16 Completed ECG Data Tracing #1: I reviewed this ECG and interpreted as documented below: EKG demonstrated sinus tachycardia with a ventricular rate of [address] depressions in V2 and V3 but no ST segment depression or elevation. QTc normal at 405. CT interval normal at 156. Narrow QRS. Medical Decision Narrative: Alexsander Montgomery is a 53-year-old male with a history of hyperlipidemia, hypertension, elevated heart rate and was previously on carvedilol who presents to the emergency department for complaints of elevated heart rate and fluttering in his chest. Patient states that he is switching primary care physicians and has been on carvedilol for many many years, however he ran out 8 days ago and since he is switching primary care doctors, his original primary care doctor would not fill it. He states that over the last 2 days, while at work, he developed fluttering in his chest while exerting himself and felt hot overall. He reports no chest pain or shortness of breath. He states that getting up and walking a short distance will oftentimes make him short of breath since he has been off of his medication. He does report some vomiting but states that it only occurs when he exerts himself and gets hot. On arrival, patient is hypertensive and tachycardic with a heart rate of 111 bpm. Breathing comfortably on room air with oxygen saturation at 98% SpO2. Afebrile. Physical exam, stated above, revealed a mildly anxious male in no acute distress. Cardiopulmonary exam demonstrated tachycardia but no murmurs or rubs. No wheezing, rales or rhonchi. Abdomen is soft, nontender nondistended. He does not have any appreciable peripheral edema. Differential diagnosis includes, but is not limited to: Tachycardia secondary to being off of his beta-blockers, pulmonary embolism, ACS, pneumonia, electrolyte derangement, among others. Workup in the emergency department included: CBC with differential, D-dimer, CMP, troponin, BNP, chest x-ray. Patient was treated with 25 mg (his home dose) of oral carvedilol Workup was significant for mild leukocytosis with white cell count of 14.9, D- dimer negative at 0.4, CMP with mildly low potassium of 3.1 (will treat with 40 mEq of potassium chloride orally), mildly elevated anion gap of 15.1, glucose of 199, initial troponin less than 0.01, BNP normal at 41.5, liver enzymes unremarkable. Chest x-ray interpreted by me personally prior to official radiology read. No focal consolidations, no widening of the mediastinum, no pneumothorax, no pneumo mediastinum. See radiology report for details. Patient's tachycardia had improved throughout his ED stay and he did not have any recurrence of his symptoms. Patient states that he has his first appointment with his new primary care physician on the of this month. Given his workup today has been negative for any other pathology and he has symptomatic relief with rate control, it is felt that his tachycardia and symptoms are likely related to him not being on his beta-funmilayo over the past 8 days. Will give him a 10 day prescription of his home carvedilol to ensure that he has enough to get him through till his next appointment with his PCP. Return precautions were given. All questions were answered. He demonstrated understanding and was agreed with this plan. He was then discharged from the emergency department in stable condition. Critical Care Critical Care Time Critical Care Time: No
[2024-10-31 12:30] VITALS: BP 119/87; RESP 15
[2024-10-31] MEDS: POTASSIUM CHLORIDE 20MEQ TAB 40 MEQ PO (12:41)
[2024-10-31 13:38] LABS: Hepatitis C Ab Qual. W/ RFX NEGATIVE (Negative)
[2024-10-31 13:44] VITALS: BP 121/83; PULSE 81; RESP 20; TEMP 36.9; O2SAT 97
[2024-10-31 15:44] LABS: HIV Combo NEGATIVE (Negative)
== END 2024-10-31 13:52 | disposition home or self-care (01) ==
PROVIDERS: Emergency Provider Student in an Organized Health Care Education/Training Program; PCP Internal Medicine
DX: R00.2 Palpitations (principal); R00.0 Tachycardia, unspecified; R07.9 Chest pain, unspecified; R11.10 Vomiting, unspecified; R42 Dizziness and giddiness; R06.02 Shortness of breath; Z72.0 Tobacco use
CPT/HCPCS: 71045; 80053; 83735; 83880; 84484; 85025; 85378; 86803; 87389; 93005; 99284

== ENCOUNTER 2025-06-17 08:07 | Outpatient (CLI) | payer OTHER, SELFPAY ==
--- OUTSIDE RECORDS SUMMARY | 2025-06-17 08:11 | XMS_ITS | Clinical Summary ---
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 2 Active lisinopril 10 MG tablet Take 10 mg by mouth 1 (one) time each day. 2 Active atorvastatin (Lipitor) 20 MG tablet TAKE ONE TABLET BY MOUTH ONCE DAILY FOR CHOLESTEROL 2 Active venlafaxine XR (Effoxor-XR) 150 MG 24 hr capsule Take 150 mg by mouth 1 (one) time each day. 2 Active clonazePAM (KlonoPIN) 0.5 MG tablet Take 0.5 mg by mouth 2 (two) times a day. Active gabapentin (Neurontin) 300 MG capsule Take 300 mg by mouth every night. Active Active Problems Problem Noted Date Diagnosed Date Acute lateral meniscus tear of right knee 2022 Resolved Problems Problem Noted Date Diagnosed Date Resolved Date Acute pain of right knee 02/17/2023 Social History Tobacco Use Types Packs/Day Years Used Date Smoking Tobacco: Every Day Cigarettes Smokeless Tobacco: Never Tobacco Cessation:Ready to Q uit: Not Asked; Counseling Given: Not Answered Alcohol Use Standard Drinks/Week Comments Not Currently 0 (1 standard drink = 0.6 oz pur e alcohol) PHQ-2 Answer Date Recorded Patient Health Questionnaire-2 Score 0 01/13/2023 PHQ-2A Answer Date Recorded Patient Health Questionnaire-2 Score 0 01/13/2023 Sex and Gender Information Value Date Recorded Sex Assigned at Not on file Legal Sex Male 6:07 PM EDT Gender Identity Not on file Sexual Orientation Not on file Last Filed Vital Signs Vital Sign Reading Time Taken Comments Blood Pressure 171/105 02/01/2023 1:41 PM EDT Pulse 67 02/01/2023 1:41 PM EDT Temperature 36.7 C (98.1 F) 02/10/2022 10:17 AM EDT Respiratory Rate 16 01/13/2023 1:34 PM EDT Oxygen Saturation 99% 01/13/2023 1:34 PM EDT Inhaled Oxygen Concentration - - Weight 83.1 kg (183 lb 3.2 oz) 02/01/2023 1:41 P M EDT Height 180.3 cm (5' 11 ) 02/01/2023 1:41 PM EDT Body Mass Index 25.55 02/01/2023 1:41 PM EDT Plan of Treatment Health Maintenance Due Date Last Done Comments [facility]-HIV Screening 1971 [facility]-Hepatitis C Screening 1971 [facility]-Infant/Child/Adol SDOH Screenings 1971 [facility]- SDOH Screenings 11/20/1989 [facility]-Adult SDOH Screenings 11/20/1989 [facility]-DTaP,Tdap,and Td Vaccines (1 - Tdap) 11/20/1990 [facility]-Hepatitis B Vaccines (1 of 3 - 19+ 3-dose series) 11/20/1990 CT Colonography 11/20/2016 Colonoscopy 11/20/2016 FIT-DNA 11/20/2016 FIT 11/20/2016 FOBT 11/20/2016 Sigmoidoscopy 11/20/2016 [facility]-Colorectal Cancer Screening 11/20/2016 [facility]-Pneumococcal Vaccine: 50+ Years (1 of 1 - PCV) 11/20/2021 [facility]-Zoster Vaccines (1 of 2) 11/20/2021 [facility]-Depression Screening 01/14/2024 01/13/2023 [id number] Vaccine (1 - season) 2025 [facility]-Influenza Vaccine (#1) 04/22/202508/20, 05/30/2020, 06/05/2018, Additional history exists [facility]-Hepatitis A Vaccines Aged Out 02/13/2019 No longer eligible based on patient's age to complete this topic [facility]-Obesity Intervention Completed 02/01/2023, 12/21 HPV Vaccines Aged Out No longer eligi ble based on patient's age to complete this topic [facility]-HIB Vaccines Aged Out No longer e ligible based on patient's age to complete this topic [facility]-IPV Vaccines Aged Out No longer e ligible based on patient's age to complete this topic [facility]-Rotavirus Vaccines Aged Out No lo nger eligible based on patient's age to complete this topic Insurance [employer]ET[employer] [facility] MEDICAID Care Teams Material Crew Supervisor Relationship Specialty Start Date End Date Marvin Stafford MD [address] [place] [id number] PCP - General 02/10/22
--- NOTE | 2025-06-17 09:00 | US_ITS ---
FINAL REPORT CLINICAL HISTORY: LT BRACHIAL CYST FNA -- MANAV ZHU FINDINGS: ULTRASOUND GUIDED NECK BIOPSY HISTORY: Left neck mass. Brachial cleft cyst. ATTENDING RADIOLOGIST: Dr. Quezada PHYSICIAN BUSINESS SALES CONSULTANT: Manav Donaldson PA-C PROCEDURE: After informed consent was obtained and a time-out was performed, the patient was prepped and draped in usual sterile fashion over the left neck. Utilizing sterile technique with a 18-gauge needle, access to lesion was obtained under direct ultrasound guidance. Aspiration was performed with removal of approximately 5 mL of thick fluid. Fluid was sent to lab for cytology. The patient tolerated procedure well and left the department in good condition. IMPRESSION: Status post ultrasound guided biopsy of left neck mass without immediate complication. Reviewed, Interpreted and Dictated by Aashish Quezada MD Transcribed by AUDRA Domingo Authenticated and [facility]
== END 2025-06-17 23:59 | disposition home or self-care (01) ==
LOC: RAD 08:08
PROVIDERS: PCP Physician Assistant; Visit Provider Otolaryngology
DX: Q18.0 Sinus, fistula and cyst of branchial cleft (principal)
CPT/HCPCS: 76942